=== PATIENT | female | born 1955 | race Caucasian/White ===

== ENCOUNTER 2017-02-22 03:29 | Inpatient (IN) | payer OTHER, MEDICARE ==
[~2017-02-22] VITALS: Ht 149.9 cm; Wt 110.2 kg
[~2017-02-22 03:29] MED LIST: ADVAIR 250-501 EACH INH; ATORVASTATIN CA10 M1 PO; CYCLOBENZAPRINE10 M1 PO; DICLOFENAC SODI75 M2 PO; DOXYCYCLINE HY100 M2 PO; GEMFIBROZIL600 M1 PO; HYDROCHLOROTHIA25 M1 PO; HYDROCODON-ACE1 EAC2 PO; LEVOTHYROXINE25 MCG PO; LISINOPRIL5 M1 PO; LYRICA200 M1 PO; METFORMIN HCL1000 M1 PO; METOPROLOL TART25 M1 PO; OMEPRAZOLE40 M1 PO; PROAIR HFA8.5 GM INH; VOLTAREN100 GM TOP; ZOLPIDEM TARTRA10 M1 PO
--- NOTE | 2017-02-22 15:38 | Admission Core Measures ---
Admission Meds I reviewed the following Meds: Current Medications Sig/Indu Start time Last Medication Dose Stop Time Status Admin Metronidazole 500 MG IQ8 02/22 1600 CAN (Flagyl) N/A 1 UNIT (No Carrier) Acute Coronary Syndrome Inclusion Criteria ACS Diagnosis No Inpatient Core Measures LDL Reminder: If No, please order W/I first 24hr of stay Congestive Heart Failure Inclusion Criteria CHF Diagnosis No Cerebrovascular accident Inclusion Criteria CVA/TIA Diagnosis No Inpatient Core Measures Bedside Swallow Eval Reminder: If BSE failed, place ST order Antithrombotic Reminder: Order Antithrombotic Medication by end of day 2 Antithrombotic Reminder: Document Reason Antithrombotic Not ordered by end of day 2 AFIB/Flutter Reminder: If Present, add to problem list AFIB/Flutter Reminder: Order Anticoag Medication for pts with AFIB/Flutter Atherosclerosis Reminder: If Present, add to problem list LDL Reminder: If No, please order W/I first 24hr of stay PT Order Reminder: If No, please order Venous thromboembolism Inpatient Core Measures VTE Risk Factors: Age > 40, Surgery [facility] prophylaxis d/t No contraindications No VTE Pharm Prophylaxis d/t No contraindications Inclusion Criteria - Per Current guidelines, there needs to be overlap - treatment for the first 5 days of Warfarin therapy. - Parenteral Anticoagulation (IV or SC) needs to be - given along with Warfarin therapy. VTE Diagnosis No VTE Type NONE VTE Confirmed by (Test) NONE Problem List As ranked by this Provider includes Assessment & Plan 1. Colon cancer HOME MEDS Home Med List Albuterol Sulfate (Proair Hfa) 8.5 GM HFA.AER.AD 2 PUF INH Q4-6 PRN PRN BREATHING PROBLEMS (Reported) Atorvastatin Calcium 10 MG TABLET 1 TAB PO DAILY CHOLESTEROL (Reported) Cyclobenzaprine HCl 10 MG TABLET 1 TAB PO TID SPASM (Reported) Fluticasone/Salmeterol (Advair 250-50 Diskus) 1 EACH BLST.W.DEV 1 PUF INH BID BREATHING PROBLEMS (Reported) Fluticasone/Salmeterol (Advair 250-50 Diskus) 250 MCG-50 MCG/DOSE BLST.W.DEV 1 PUF INH BID ASTHMA (Reported) Gemfibrozil 600 MG TABLET 1 TAB PO BID CHOLESTEROL (Reported) Hydrocodone/Acetaminophen (Hydrocodon-Acetaminophen 5-325) 5 MG-325 MG TABLET 1-2 TAB PO Q4-6 PRN PRN PAIN (Reported) Levothyroxine Sodium 25 MCG TABLET 1 TAB PO DAILY AC THYROID (Reported) Metformin HCl 1,000 MG TABLET 1 TAB PO BID DIABETES (Reported) Metoprolol Tartrate 25 MG TABLET 1 TAB PO BID HEART/BP (Reported) Omeprazole 40 MG CAPSULE.DR 1 CAP PO DAILY GI (Reported) Zolpidem Tartrate 10 MG TABLET 1 TAB PO QPM SLEEP (Reported)
--- NOTE | 2017-02-22 16:33 | Operative Report ---
Operative/Inv Procedure Report Surgery Date: 02/22/17 Name of Procedure: Right hemicolectomy Pre-Operative Diagnosis: Colonic stricture Post-Operative Diagnosis: Same Estimated Blood Loss: less than 50ml Surgeon/Autism Teacher: ARLEN LR,YARITZA MASON Anesthesia: general endotracheal tube Operative/Procedure Note Note: Patient was positioned supine, after induction of general anesthesia, a tap block was performed, IV antibiotics were given and then the abdomen was clipped prepped and draped from the nipples to the groin in the usual sterile fashion. A midline incision was made with a 10 blade starting in the midepigastrium and extending to or a few centimeters below the umbilicus based on preoperative CT scan and the abdominal habitus. The incision was deepened with cautery through Carter's fascia clearing off the linea alba first then carefully incising it avoiding injury to the underlying bowel. The abdomen was explored there was no free fluid peritoneal studding or obvious liver metastases. Before being able to mobilize the right colon a significant amount of time was spent lysing adhesions between the omentum and the small bowel and the small bowel mesentery and the peritoneum. After this the tattoo was found just distal to the hepatic flexure just proximal to the tattoo there was a vague sense of a linear thickening it was very subtle. The cecum was grasped and then retracted towards the incision, opening up the lateral and posterior attachments to the retroperitoneum with cautery including those to the terminal ileum and appendix continuing the retraction superiorly and mobilizing inferiorly and a little medially as well and then continuing laterally up towards the hepatic flexure along the white line of Toldt. Here cares taken to avoid injury to the ureter and gonadal vessels which are identified and left alone in a deeper plane This is continued back and forth mostly with cautery and a little bit of blunt dissection in the avascular areas until it starts to come up off joint was fascia and then the duodenum, the higher you get cares taken to avoid pulling because of the tension on the middle colic vessels. Next the hepatic flexure is taken down with the aid of LigaSure where it's more vascular and care is taken to distinguish between an separate the mesocolon and the omentum here. A point on the transverse colon just distal to the tattoo, was marked lightly with cautery , this point was past the right branch of the middle colic artery, and the omentum is divided here as well. On the other end, the terminal ileum was similarly markeded 6 cm proximal to the cecum and in both areas, a small window was made on the mesenteric border to earl the lines of transection of the mesentery. Having identified and divided with LigaSure, the right branch of the middle colic artery, there's a bare area in the mesentery next to the duodenum that leads to the main pedicles of the right colon. This right colic pedicle is identified in the mesenteric fat around it is partially cleared off. On the other side the distal small bowel mesentery is scored on both sides and then divided with LigaSure until the ileocolic pedicle was was identified and also cleared off some of the fat. These 2 adjacent pedicles are isolated near their origins and divided separately with the LigaSure after first suture ligating them with 2-0 Vicryl. Next a side to side functional end to end stapled anastomosis was made using a VALERIANO stapler with two 80 mm cartridges, the first to make a common enterotomy, and the second to "T" -off the first. Before actually firing the stapler first we made sure that the distal small bowel and transverse colon are lined up parallel not twisted or stretched and that the mesenteric fat is cleared off circumferentially where the raudel will go, we placed a 3-0 silk suture at the top and at the bottom to line them up, then make adjacent enterotomies on the antimesenteric borders inserted the stapler check that fat hasn't rolled in posteriorly, and fired. The second firing which completes the anastomosis and the resection, is checked for hemostasis with cautery but also the corners are dunked with 3-0 silk Lemberts. Next the abdomen is irrigated checked for hemostasis small bowel is run and checked for any twisting and positioned down and away from the mesenteric defect, repeatedly checking the anastomosis for any bleeding or twisting. The position of the NG tube was checked and then the incision is closed in layers using 2 continuous runs of single 0 Maxon suture for the fascia then the subcutaneous layer is irrigated again, reapproximated subdermally with interrupted 3-0 Vicryl, followed by skin raudel and an island dressing. EBL minimal lap and sponge counts correct wound expectancy was clean- contaminated, IV fluids crystalloid complications none, patient tolerated the procedure well and was returned to the recovery room in satisfactory condition.
--- NOTE | 2017-02-22 17:46 | PN- General Surgery ---
Subjective Subjective: POST OP CHECK Patient resting comfortably in bed. Minimal discomfort to abdomen. Denies CP/ SOB, N/V, F/C. Yet to ambulate. Voiding via lanier catheter. NGT remains to CLWS. Objective Vital Signs and I&Os T: 98.8F P: 90s RR: 20 BP: 142/74 o2: 95% 3LNC Physical Exam: Gen: AAOx3 in NAD Cor: S1+S2+ Lungs: CTA ursula Abd: soft, appropriately tender to midline incision, mild amount of sanguinous strikethrough noted on island dressing, ND, no BS auscultated. Ext: no edema or calf tenderness to ursula lower extremities. Current Medications: Current Medications Sig/Indu Start time Last Medication Dose Route Stop Time Status Admin Acetaminophen 1,000 MG .STK-MED ONE 02/22 719 DC IV 02/22 07 Ceftriaxone Sodium 1,000 MG ONCE ONE 02/22 1030 DC IV 02/22 1031 Fentanyl Citrate 250 MCG .STK-MED ONE 02/22 937 DC IM 02/22 09 Fentanyl Citrate 300 MCG .STK-MED ONE 02/22 0719 DC IM 02/22 0720 Hydromorphone HCl 2 MG .STK-MED ONE 02/22 0937 DC IM 02/22 0938 Hydromorphone HCl 2 MG .STK-MED ONE 02/22 0719 DC IM 02/22 0720 Metronidazole 500 MG IQ8 02/22 1600 CAN N/A 1 UNIT IV Metronidazole 500 MG ONCE ONE 02/22 1030 DC N/A 1 UNIT IV 02/22 1129 Midazolam HCl 2 MG .STK-MED ONE 02/22 0938 DC IM 02/22 0939 Midazolam HCl 2 MG .STK-MED ONE 02/22 0719 DC IM 02/22 0720 Assessment/Plan Assessment/Plan A: 61 year old female now s/p right colectomy for colon ca; avss. Plan: Wean oxygen if feasible. Monitor urine output, seems sluggish at moment (75ml over 3 hours). Continue IVF. Continue NPO. F/U am labwork. Pain control. NGT to remain on CLWS awaiting advance in bowel function. HSQ for DVT ppx. Core Measures/Miscellaneous Venous Thromboembolism VTE Risk Factors: Age > 40, Surgery VTE Contraindications: No Contraindications VTE Diagnosis: No VTE Type: NONE VTE Confirmed by (Test): NONE Beta Gibran Is Beta Gibran a Home Med? Yes Antibiotics Is Patient on Antibiotics? Yes
--- NOTE | 2017-02-22 18:00 | NUR ---
PT ARRIVED TO FLOOR AT 1800 VIA STRETCHER FROM PACU. PT A/V/OX3. ON 4LNC, SAT 97%. NGT TO L NARE AT 55 CM TO CLWS. MIDLINE ABD ISLAND DRESSING WITH MILD BLOODY DRAINAGE NOTED, SURG PA AWARE. PT REMAINS NPO, ACCUCHECK 208, NOVOLIN COVERAGE PROVIDED PER EMAR. REVELES IN PLACE DRAINING TO GRAVITY WITH KINGSLEY OUTPUT. VSS. SKIN INTACT. #22 RH INFUSING D5NS @ 100ML/HR PER EMAR. #20 RAC FLUSHES EASILY, HEP LOCKED. PT MEDICATED WITH MORPHINE PER EMAR FOR PAIN OF 9/10 TO ABD. PT STATES RELIEF FROM MORPHINE. FAMILY AT BEDSIDE. ORIENTED TO ROOM, CALL ALDRICH, & STAFF. WILL CONTINUE TO MONITOR.
[2017-02-22 18:15] VITALS: BP 130/80
--- NOTE | 2017-02-22 20:23 | NUR ---
PT RECEIVED 4MG IV MORPHINE AT 1830 PER EMAR, PT WITH LITTLE PAIN RELIEF. SURG PA JENNY NOTIFIED, 30MG TORADOL ORDERED. PT C/O NAUSEA, ZOFRAN ORDERED. WILL CONTINUE TO MONITOR.
[2017-02-22 22:30] VITALS: BP 142/82
--- NOTE | 2017-02-22 22:47 | NUR ---
PT HAS NGT BUT NO XRAY CONFIRMING PLACEMENT. SURGICAL PA JENNY NOTIFIED. PER SURGICAL PA, XRAY NOT NEEDED BECAUSE NGT PLACED IN OR. CHARGE NURSE URSULA NOTIFIED AND PER CHARGE NURSE, IT IS HOSPITAL POLICY TO HAVE XRAY PLACEMENT. WILL HOLD MEDICATIONS UNTIL XRAY IS ORDERED. WILL CONTINUE TO MONITOR.
--- NOTE | 2017-02-22 23:22 | Event Note ---
Event Note Event Note: cxr ordered to confirm ngt placement. however spoke with charge nurse and explained that documented in op report that ngt was confirmed by direct palpation by operating surgeon.
--- NOTE | 2017-02-22 23:54 | RADIOLOGY REPORT ---
EXAMINATION: XR PORTABLE CHEST CLINICAL INFORMATION: Check nasogastric tube placement COMPARISON: Chest x-ray October 2016. CT abdomen and pelvis December 2016. TECHNIQUE: Portable AP view of the chest was obtained. FINDINGS: AVN NG tube is noted in the chest but becomes obscured in the lower chest as the lower chest and upper abdomen is underpenetrated. Therefore the distal tip cannot be definitively located. The lungs are clear. The cardiac silhouette is within the upper limits of normal and unchanged. The lungs are clear. Bone and soft tissues unremarkable. IMPRESSION: NG tube in place although distal tip obscured proximal part due to the underpenetrated technique if location of the distal portion of NG tube remains necessary consider follow-up x-ray of the abdomen which which may help in penetration through the soft tissues.
--- NOTE | 2017-02-23 01:44 | RADIOLOGY REPORT ---
EXAMINATION: XR ABDOMEN CLINICAL INDICATION: Evaluate nasogastric tube placement. COMPARISON: Chest radiograph 02/22/2017. TECHNIQUE: AP views of the abdomen and pelvis were obtained. FINDINGS: The distal tip and side-port of the nasogastric tube are located within the stomach. [place] delineate a laparotomy incision. Bowel gas pattern is normal. No acute osseous finding. IMPRESSION: The distal tip of the enteric tube is located within the stomach.
[2017-02-23 02:44] VITALS: BP 116/64
[2017-02-23 07:03] VITALS: BP 116/50
[2017-02-23 08:22] LABS: ABSOLUTE BASOPHIL COUNT 0 /CUMM (0.0-0.2); ABSOLUTE EOSINOPHIL COUNT 0 /CUMM (0.0-0.7); ABSOLUTE GRANULOCYTE CT 14.9 /CUMM (1.4-6.5); ABSOLUTE LYMPH COUNT 0.7 /CUMM (1.2-3.4); ABSOLUTE MONOCYTE COUNT 1.9 /CUMM (0.10-0.60); BASOPHIL % 0 % (0.0-2.0); EOSINOPHIL % 0 % (0-5); GRANULOCYTE % 85.6 % (42.2-75.2); HEMATOCRIT 30.4 % (37-47); MEAN CORPUSCULAR HGB 26.2 PG (27.0-31.0); MEAN CORPUSCULAR HGB CONC 32.2 G/DL (33.0-37.0); MEAN CORPUSCULAR VOLUME 81.4 FL (81.0-99.0); MEAN PLATELET VOLUME 8.6 FL (7.4-10.4); PLATELET COUNT 274 /CUMM (130-400); RBC DISTRIBUTION WIDTH 17.4 % (11.5-14.5); RED BLOOD CELL CT 3.73 /CUMM (4.20-5.40); WHITE BLOOD CELL COUNT 17.4 /CUMM (4.8-10.8)
[2017-02-23 11:38] VITALS: BP 118/70
--- NOTE | 2017-02-23 13:11 | PN- General Surgery ---
See Addendum Subjective Subjective: Patient without complaints overnight. Today stated that pain was controlled well. However began to become anxious late morning/early afternoon and began to feel nausea. States has a history of dry heaving when anxious. Denies chest pain, shortness of breath and difficulty breathing. Objective Vital Signs and I&Os Vital Signs Date Time Temp Pulse Resp B/P Pulse O2 O2 Flow FiO2 Ox Delivery Rate 02/23 1138 98.1 84 20 118/70 96 Nasal 2.0L Cannula 02/23 0943 84 124/74 02/23 0703 97.4 97 20 116/50 97 Nasal 4.0L Cannula 02/23 0244 97.9 100 20 116/64 97 Nasal 4.0L Cannula 02/23 0000 97 Nasal 4.0L Cannula 02/22 2230 98.2 90 18 142/82 97 Nasal 4.0L Cannula 02/22 1815 97.4 90 18 130/80 97 Nasal 4.0L Cannula 02/22 1800 97 Nasal 4.0L Cannula Intake & Output 02/23 1600 02/23 0800 02/23 0000 02/22 1600 02/22 0800 02/22 0000 Intake Total 800 500 Output Total 300 200 Balance 500 300 Intake, IV 800 500 Output, 50 100 Gastric Drainage Output, Urine 250 100 Patient 240 lb Weight Physical Exam: General: Anxious, mild distress, crying. Alert and oriented x3 Cardiac: RRR, s1s2 Pulmonary: CTA bilaterally Abdomen: Softly distended, Dressing stained with old blood. Tesha-incisional tenderness noted Extremiteis: MOves all extremities, distal sensation intact. Motor intact. No peripheral edema. Skin well perfused. DP pulses palpable. Bilateral calves soft and non-tender Assessment/Plan Assessment/Plan This is a 61 year old female with a pmh of breast cancer who underwent a right colectomy for anemia and intestinal mass -continue ngt for now -Ativan now for anxiety, reassess nausea -Strict i/o, keep lanier catheter for now -NPO strict -SubQ hep for dvt ppx, alps -Contineu current pain regimen -Will d/w Dr. Velazquez Core Measures/Miscellaneous Venous Thromboembolism VTE Risk Factors: Age > 40, Surgery VTE Contraindications: No Contraindications VTE Diagnosis: No VTE Type: NONE VTE Confirmed by (Test): NONE Beta Gibran Is Beta Gibran a Home Med? Yes Antibiotics Is Patient on Antibiotics? Yes
[2017-02-23 14:34] VITALS: BP 158/80
--- NOTE | 2017-02-23 15:38 | NUR ---
1115- PT COMPLAINING OF NAUSEA AND REQUESTED ZOFRAN, WHICH WAS GIVEN 1215- PT BEGAN VOMITING AND DRY HEAVING. SMALL AMOUNT OF EMESIS; PT HAS NGT TO L ANNEE. NGT PATENT AND ON CONTINUOUS LWS. SURG ISABELLA KAM NOTIFIED AND TO ASSESS AT BEDSIDE. 1230- ATIVAN ORDERED AND GIVEN. PT STATES SHE DRY HEAVES WHEN ANXIOUS AT BASELINE AND IS FEELING VERY ANXIOUS. 1330- PT CONTINUES WITH NAUSEA AND VOMITING. + BS. OUTPUT FROM NGT 150 ML FOR THIS SHIFT. SURG ISABELLA KAM NOTIFIED OF ABOVE AND TO RE ASSESS AT BEDSIDE. IV BENADRYL ORDERED AND GIVEN 1500- PT REPORTS RELIEF FROM NAUSEA. NO VOMITING SINCE BENADRYL ADMINISTERED. WILL CONTINUE TO ASSESS.
[2017-02-23 17:17] VITALS: BP 148/86
--- NOTE | 2017-02-23 18:11 | NUR ---
1800- NGT OUTPUT WITH DARK BLOODY APPEARANCE. NOT NATALY BLOOD. SURG ISABELLA KAM NOTIFIED. WILL CONTINUE TO MONITOR. PER SURG ISABELLA KAM, STOMACH COULD BE IRRITATED FROM SEVERAL VOMITING EPISODES TODAY.
[2017-02-23 20:50] VITALS: BP 128/70
[2017-02-24 07:26] VITALS: BP 140/70
--- NOTE | 2017-02-24 07:40 | PN- General Surgery ---
See Addendum Subjective Subjective: The patient was seen this morning postoperatively day #2. She appeared anxious and was complaining of incisional pain. She denied any nausea this morning but reports belching a lot. She has not passed flatus and has yet to have a bowel movement. Her NG tube continues to put out dark bloodyish drainage. Objective Vital Signs and I&Os Vital Signs Date Time Temp Pulse Resp B/P Pulse O2 O2 Flow FiO2 Ox Delivery Rate 02/24 0726 97.8 105 20 140/70 96 02/24 0000 95 Nasal 2.0L Cannula 02/23 2102 107 128/78 02/23 2050 98.7 107 20 128/70 95 Nasal 2.0L Cannula 02/23 1717 98.3 101 20 148/86 91 Nasal 1.0L Cannula 02/23 1434 97.8 103 20 158/80 98 Nasal 2.0L Cannula 02/23 1138 98.1 84 20 118/70 96 Nasal 2.0L Cannula 02/23 0943 84 124/74 02/23 0800 96 Nasal 2.0L Cannula Intake & Output 02/24 0800 02/24 0000 02/23 1600 02/23 0800 02/23 0000 02/22 1600 Intake Total 690 240 860 800 500 Output Total 500 400 650 300 200 Balance 190 -160 210 500 300 Intake, IV 640 240 800 800 500 Intake, Other 50 60 Output, 150 150 150 50 100 Gastric Drainage Output, Urine 350 250 500 250 100 Patient 240 lb Weight Physical Exam: Gen.: Alert/anxious and in no obvious distress Skin: Warm and dry Abdomen: Soft, obese, appropriate incisional tenderness, bowel sounds sluggish. Surgical dressing was removed and the incision is dry with raudel in place and without signs of infection. Extremities: Bilateral lower extremities are warm without calf tenderness or significant edema. Assessment/Plan Assessment/Plan Assessment: 61-year-old female status post right hemicolectomy postoperative day #2. The patient is slowly progressing and her bowel function has had to return. She remains anxious and there is bloody drainage from her NG tube. Plan: DC IV Toradol Increase IV fluids to 100 ML's/HR Follow-up morning laboratory studies Change by mouth PPI to IV and add Carafate DC [place] catheter GI and DVT prophylaxis Total respiratory care and incentive spirometry Out of bed and ambulate May use abdominal binder for comfort Continue nothing by mouth and NG tube decompression Core Measures/Miscellaneous Venous Thromboembolism VTE Risk Factors: Age > 40, Surgery VTE Contraindications: No Contraindications VTE Diagnosis: No VTE Type: NONE VTE Confirmed by (Test): NONE Beta Gibran Is Beta Gibran a Home Med? Yes Antibiotics Is Patient on Antibiotics? No
[2017-02-24 08:10] LABS: ABSOLUTE BASOPHIL COUNT 0 /CUMM (0.0-0.2); ABSOLUTE EOSINOPHIL COUNT 0.2 /CUMM (0.0-0.7); ABSOLUTE GRANULOCYTE CT 9.9 /CUMM (1.4-6.5); ABSOLUTE LYMPH COUNT 1.2 /CUMM (1.2-3.4); ABSOLUTE MONOCYTE COUNT 1.3 /CUMM (0.10-0.60); BASOPHIL % 0.2 % (0.0-2.0); EOSINOPHIL % 1.4 % (0-5); GRANULOCYTE % 78.7 % (42.2-75.2); MEAN CORPUSCULAR HGB 26.4 PG (27.0-31.0); MEAN CORPUSCULAR HGB CONC 32.3 G/DL (33.0-37.0); MEAN CORPUSCULAR VOLUME 81.7 FL (81.0-99.0); MEAN PLATELET VOLUME 9.3 FL (7.4-10.4); PLATELET COUNT 288 /CUMM (130-400); RBC DISTRIBUTION WIDTH 17.8 % (11.5-14.5); RED BLOOD CELL CT 3.67 /CUMM (4.20-5.40); WHITE BLOOD CELL COUNT 12.5 /CUMM (4.8-10.8)
[2017-02-24 15:07] VITALS: BP 120/60
--- NOTE | 2017-02-24 17:17 | NUR ---
0800- SURG ISABELLA PARIKH REMOVED SURICAL DRESSING. LEAVE OPEN TO AIR PER KATI.
[2017-02-24 22:24] VITALS: BP 136/80
[2017-02-25 06:35] VITALS: BP 130/78
--- NOTE | 2017-02-25 08:04 | PN- General Surgery ---
See Addendum Subjective Subjective: Pt calm and comfortable this morning Still has not passed gas, no bm Ambulated to bathroom only yesterday no complaints of nausea this morning - had one bout overnight - benadryl seems to help Objective Vital Signs and I&Os Vital Signs Date Time Temp Pulse Resp B/P Pulse O2 O2 Flow FiO2 Ox Delivery Rate 02/25 0635 97.7 98 20 130/78 95 Room Air 02/24 2224 97.7 105 20 136/80 90 Room Air 02/24 2100 75 120/60 02/24 1507 98.0 75 20 120/60 97 02/24 1252 Nasal 2.0L Cannula 02/24 1000 100 144/88 Intake & Output 02/25 1600 02/25 0800 02/25 0000 02/24 1600 02/24 0800 02/24 0000 Intake Total 800 800 800 690 240 Output Total 500 200 800 500 400 Balance 300 600 0 190 -160 Intake, IV 800 800 800 640 240 Intake, Other 50 Output, 100 150 150 Gastric Drainage Output, Urine 500 200 700 350 250 Physical Exam: VSS, afebrile Urine output good IVF - D5NS at 100cc/hr General: alert and oriented times three chest: clear anteriorly bilaterally, RRR Abd: soft, good bs, nondistended Ext: warm, no edema Wound: looks good, raudel intact, no erythema or drainage Current Medications: Current Medications Sig/Indu Start time Last Medication Dose Route Stop Time Status Admin Acetaminophen 1,000 MG Q6P PRN 02/22 1815 AC 02/25 N/A 1 UNIT IV 0204 Albuterol Sulfate 2 PUF Q4-6 PRN PRN 02/22 1815 AC INH Atorvastatin Calcium 10 MG 1700 02/23 1700 AC PO Budesonide/ 2 PUF BID 02/22 2200 AC 02/24 Formoterol Fumarate INH 2100 Dextrose/Sodium 1,000 ML Q10H 02/22 1815 AC 02/25 Chloride IV 0617 Diphenhydramine HCl 25 MG ONCE ONE 02/25 0200 DC 02/25 IV 02/25 0201 0157 Gemfibrozil 600 MG BID 02/22 2200 AC 02/24 PO 2100 Insulin Human Regular 2 UNITS .STK-MED ONE 02/24 1754 DC IV 02/24 1755 Insulin Human Regular 2 UNITS .STK-MED ONE 02/24 1216 DC IV 02/24 1217 Insulin Human Regular 0 Q6 02/22 1800 AC 02/25 SC 0617 Levothyroxine Sodium 12.5 MCG DAILY 02/23 1000 AC 02/24 IV 1001 Lorazepam 1 MG Q4P PRN 02/23 1230 AC 02/23 IV 1958 Metoprolol Tartrate 25 MG BID 02/22 2200 AC 02/24 PO 2100 Morphine Sulfate 2 MG Q4P PRN 02/22 1815 AC IV Morphine Sulfate 4 MG Q6-PRN PRN 02/22 1815 AC 02/25 IV 0158 Ondansetron HCl 4 MG .STK-MED ONE 02/24 220 DC IM 02/24 220 Ondansetron HCl 4 MG Q6P PRN 02/22 2030 AC 02/24 IV 2206 Pantoprazole Sodium 40 MG DAILY 02/24 1000 AC 02/24 IV 1000 Sucralfate 1 GM BID 02/24 1000 AC 02/24 PO 2100 Assessment/Plan Assessment/Plan 61yo female pod 3 s/p hemicolectomy await bowel function - Continue npo/ivf until flatus ambulate fu labs Core Measures/Miscellaneous Venous Thromboembolism VTE Risk Factors: Age > 40, Surgery VTE Contraindications: No Contraindications VTE Diagnosis: No VTE Type: NONE VTE Confirmed by (Test): NONE Beta Gibran Is Beta Gibran a Home Med? Yes Antibiotics Is Patient on Antibiotics? No
[2017-02-25 08:06] LABS: ABSOLUTE BASOPHIL COUNT 0 /CUMM (0.0-0.2); ABSOLUTE EOSINOPHIL COUNT 0.4 /CUMM (0.0-0.7); ABSOLUTE GRANULOCYTE CT 7.7 /CUMM (1.4-6.5); ABSOLUTE LYMPH COUNT 1.1 /CUMM (1.2-3.4); ABSOLUTE MONOCYTE COUNT 1.1 /CUMM (0.10-0.60); BASOPHIL % 0.3 % (0.0-2.0); EOSINOPHIL % 3.7 % (0-5); GRANULOCYTE % 74.7 % (42.2-75.2); HEMATOCRIT 29.2 % (37-47); MEAN CORPUSCULAR HGB 26.1 PG (27.0-31.0); MEAN CORPUSCULAR VOLUME 81.7 FL (81.0-99.0); MEAN PLATELET VOLUME 8.4 FL (7.4-10.4); PLATELET COUNT 306 /CUMM (130-400); RED BLOOD CELL CT 3.58 /CUMM (4.20-5.40); WHITE BLOOD CELL COUNT 10.4 /CUMM (4.8-10.8)
[2017-02-25 14:51] VITALS: BP 120/70
[2017-02-25 22:37] VITALS: BP 132/70
[2017-02-26 06:55] VITALS: BP 122/66
--- NOTE | 2017-02-26 07:26 | PN- General Surgery ---
See Addendum Subjective Subjective: 61 yo female, pod#4 sp open hemicolectomy. had small bm yesterday, on clears, tolerating well, still with mild to moderate abdominal pain, mostly right-sided. She has been out of bed. She is voiding and passing flatus. Still taking IV pain medication. Objective Vital Signs and I&Os Vital Signs Date Time Temp Pulse Resp B/P Pulse O2 O2 Flow FiO2 Ox Delivery Rate 02/26 0655 98.5 87 20 122/66 95 Room Air 02/25 2237 98.2 100 20 132/70 91 Room Air 02/25 2127 100 128/80 02/25 1451 98.2 91 20 120/70 96 02/25 0841 98 130/78 02/25 0800 Room Air Intake & Output 02/26 0800 02/26 0000 02/25 1600 02/25 0800 02/25 0000 02/24 1600 Intake Total 250 350 940 800 800 800 Output Total 2 500 200 800 Balance 250 350 938 300 600 0 Intake, IV 0 700 800 800 800 Intake, Oral 250 350 240 Number 1 Bowel Movements Output, 100 Gastric Drainage Output, Stool 2 Output, Urine 500 200 700 Patient 240 lb Weight Physical Exam: Well-developed well-nourished no apparent distress. HEENT: Atraumatic, extraocular motion intact Neck: Supple, no lymphadenopathy Respiratory: No respiratory distress, clear to auscultation bilateral Heart: Regular and rhythm no murmur Abdomen: Obese, well healing midline surgical incision without signs of infection, raudel in place. Moderate tenderness of the right side of the abdomen and right lower quadrant. Mild tenderness otherwise throughout. Bowel sounds normal. Extremities: No edema, full range of motion Neuro: Alert and oriented x3 Psych: Mood affect normal, normal memory normal judgment. Skin: Warm and dry, no rash on exposed skin Results Last 48 Hours of Labs: Laboratory Tests 02/25 0645 Chemistry Sodium (137 - 145 mmol/L) 139 Potassium (3.5 - 5.1 mmol/L) 4.2 Chloride (98 - 107 mmol/L) 106 Carbon Dioxide (22 - 30 mmol/L) 27 Anion Gap (5 - 16) 6 BUN (7 - 17 mg/dL) 7 Creatinine (0.5 - 1.0 mg/dL) 0.7 Estimated GFR (>60 ml/min) > 60 BUN/Creatinine Ratio (7 - 25 %) 10.0 Hematology CBC w Diff NO MAN DIFF REQ WBC (4.8 - 10.8 /CUMM) 10.4 RBC (4.20 - 5.40 /CUMM) 3.58 L Hgb (12.0 - 16.0 G/DL) 9.3 L Hct (37 - 47 %) 29.2 L MCV (81.0 - 99.0 FL) 81.7 MCH (27.0 - 31.0 PG) 26.1 L RDW (11.5 - 14.5 %) 18.0 H Plt Count (130 - 400 /CUMM) 306 MPV (7.4 - 10.4 FL) 8.4 Gran % (42.2 - 75.2 %) 74.7 Lymphocytes % (20.5 - 51.1 %) 10.8 L Monocytes % (1.7 - 9.3 %) 10.5 H Eosinophils % (0 - 5 %) 3.7 Basophils % (0.0 - 2.0 %) 0.3 Absolute Granulocytes (1.4 - 6.5 /CUMM) 7.7 H Absolute Lymphocytes (1.2 - 3.4 /CUMM) 1.1 L Absolute Monocytes (0.10 - 0.60 /CUMM) 1.1 H Absolute Eosinophils (0.0 - 0.7 /CUMM) 0.4 Absolute Basophils (0.0 - 0.2 /CUMM) 0 PUBS MCHC (33.0 - 37.0 G/DL) 32.0 L Assessment/Plan Assessment/Plan 61yo female pod 4 s/p open hemicolectomy Surgically, she is progressing well Monitor bowel function. Out of bed ad navneet. Switch from IV pain medication to by mouth pain medication, patient takes Vicodin for her arthritis with pain management chronically. Possibly advancing diet today, will discuss with Miki Velazquez MD fu A.m. chemistries Plan for discharge home likely 2 days Core Measures/Miscellaneous Venous Thromboembolism VTE Risk Factors: Age > 40, Surgery VTE Contraindications: No Contraindications VTE Diagnosis: No VTE Type: NONE VTE Confirmed by (Test): NONE Beta Gibran Is Beta Gibran a Home Med? Yes Antibiotics Is Patient on Antibiotics? No
[2017-02-26 14:35] VITALS: BP 140/80
[2017-02-26 22:59] VITALS: BP 148/82
[2017-02-27 06:30] VITALS: BP 132/78
--- NOTE | 2017-02-27 07:16 | PN- General Surgery ---
See Addendum Subjective Subjective: Feels a little nauseous after eating 25% of her dinner last night. Denies any emesis. Admits to some pain at the surgical incision, as expected. Otherwise ambulating with rolling walker, denies any CP, SOB, F or chills. Passing flatus and loose stools. Would feel more comfortable staying one more day. Requesting for a nutrition consult so she has a better understanding of her LRD. Objective Vital Signs and I&Os Vital Signs Date Time Temp Pulse Resp B/P Pulse O2 O2 Flow FiO2 Ox Delivery Rate 02/27 0900 98 134/78 02/27 0630 98.0 100 20 132/78 93 Room Air 02/26 2259 98.2 101 20 148/82 92 Room Air 02/26 2208 148/82 02/26 1435 99.4 105 20 140/80 94 02/26 0953 87 122/66 Intake & Output 02/27 1600 02/27 0800 02/27 0000 02/26 1600 02/26 0800 02/26 0000 Intake Total 200 100 480 250 350 Output Total Balance 200 100 480 250 350 Intake, IV 0 0 Intake, Oral 200 100 480 250 350 Number 1 Bowel Movements borderline tachycardic. Physical Exam: Gen: NAD, laying in bed CV: Tachy, S1/S2 Pulm: CTAB Abd: [place] in place, no erythema around incision. No ttp. +BS in all quadrants. Ext: No calf tenderness b/l Assessment/Plan Assessment/Plan 61 yo F POD# 4 s/p open right hemicolectomy for colon ca. Some nausea no emesis after being advanced to LRD. Plan: Continue to monitor bowel function. Out of bed Continue with current pain regimen Continue LRD, discussed she may order fulls of she desires. lab holiday Nutrition Consult placed Likely d/c home tomorrow unless she is able to tolerate her breakfast and lunch today. Core Measures/Miscellaneous Venous Thromboembolism VTE Risk Factors: Age > 40, Surgery VTE Contraindications: No Contraindications VTE Diagnosis: No VTE Type: NONE VTE Confirmed by (Test): NONE Beta Gibran Is Beta Gibran a Home Med? Yes Antibiotics Is Patient on Antibiotics? No
--- NOTE | 2017-02-27 11:18 | NUR ---
Physical Therapy: Consult received and chart reviewed. Pt observed by this PT ambulating around unit I with RW with steady gait. Pt may benefit from RW upon discharge if she does not have one. Acute skilled PT is not indicated at this time. Will not continue to follow. Thank you.
[2017-02-27 14:55] VITALS: BP 138/88
[2017-02-27 22:28] VITALS: BP 162/80
[2017-02-28 07:37] VITALS: BP 140/74
[2017-02-28] MEDS ORDERED: CARAFATE1 G1 PO (07:41)
--- NOTE | 2017-02-28 07:47 | Patient Discharge Instructions ---
Discharge Instructions General Discharge Information You were seen/treated for: Colonic stricture You had these procedures: Open Right hemicolectomy Special Instructions: You may shower, do not submerge wound Take pain medication as needed Watch for signs of worsening abdominal pain, nausea, vomiting or fever, any redness or swelling or discharge from the wound. Diet Continue normal diet: No Recommended Diet: Low Residue Activity Full Activity/No Limits: No Activity Self Limited: Yes Pounds, do NOT lift more than: 10 Acute Coronary Syndrome Inclusion Criteria At DC or during hospital stay patient has or had the following: ACS DIAGNOSIS No Discharge Core Measures Meds if any: Prescribed or Continued at Discharge Meds if any: NOT Prescribed or Continued at Discharge Congestive Heart Failure Inclusion Criteria At DC or during hospital stay patient has or had the following: CHF DIAGNOSIS No Discharge Core Measures Meds if any: Prescribed or Continued at Discharge Meds if any: NOT Prescribed or Continued at Discharge Cerebrovascular accident Inclusion Criteria At DC or during hospital stay patient has or had the following: CVA/TIA Diagnosis No Discharge Core Measures Meds if any: Prescribed or Continued at Discharge Meds if any: NOT Prescribed or Continued at Discharge Venous thromboembolism Inclusion Criteria VTE Diagnosis No VTE Type NONE VTE Confirmed by (Test) NONE Discharge Core Measures - Per Current guidelines, there needs to be overlap - treatment for the first 5 days of Warfarin therapy. - If discharged on Warfarin prior to 5 days of - overlap therapy, the patient will need to be - assessed for post discharge needs including - *Post discharge parental anticoagulation - *Warfarin and/or parental anticoagulation education - *Follow up date to check INR post discharge At least 5 days overlap therapy as Inpatient No Meds if any: Prescribed or Continued at Discharge Note: Overlap Therapy is Warfarin and Anticoagulant Meds if any: NOT Prescribed or Continued at Discharge
--- NOTE | 2017-02-28 07:51 | Surgical Discharge Summary ---
Visit Information Visit Dates Admission Date: 02/22/17 Discharge Date: 02/28/17 History of Present Illness Chief Complaint: Colonic stricture, status post Right open hemicolectomy Medical History Blood Transfusion Hx: Yes Neurological: FIBROMYALGIA EENT: NONE Cardiovascular: hypertension, hyperlipidemia Respiratory: asthma Gastrointestinal: GERD Hepatic: NONE Renal: NONE Musculoskeletal: NONE Psychiatric: NONE Endocrine: diabetes, HYPOTHYROID Blood Disorders: anemia Cancer(s): breast cancer [employer]/Reproductive: NONE History of MRSA: No History of VRE: No History of CDIFF: No Isolation History: Standard Surgical History Pertinent Surgical History: LEFT LUMPECTOMY 2 C SECTIONS Psychosocial History Who Do You Live With? Spouse Services at Home: None What is Your Primary Language? Tamazight Review of Systems: See [facility] Hospital Course Course Attending Physician: YARITZA MCKINLEY MD Primary Care Physician: NBA LR,[facility] Course: On 02/22 patient underwent a right open hemicolectomy by Yaritza Mckinley MD due to colonic stricture. Postoperatively she was told to progress but her postoperative course was otherwise unremarkable. She was slowly advanced to a low-residue diet with which she has been tolerating for 2 days, she has had bowel movements and is passing gas, her pain is controlled with by mouth pain medication. She has no signs of infection, a minimally tender abdomen, no nausea or vomiting. She was seen by physical therapy and cleared for discharge home by them. She'll follow-up in the office in 1 week. Allergies: Coded Allergies: Penicillins (Intermediate, HIVES 07/25/16) strawberry (HIVES, RAISED RASH 11/23/16) erythromycin base (Mild, GI 07/25/16) Disposition Summary Disposition Principal Diagnosis: Colonic stricture status post right open hemicolectomy Additional Diagnosis: See [facility] Discharge Disposition: home or self care Discharge Instructions General Discharge Information Code Status: Full Code Patient's Diet: Low residue diet Patient's Activity: Self limiting activity/activity as tolerated, no lifting greater than 10 pounds Follow-Up Instructions/Appts: Follow-up with Yaritza Mckinley MD in one week. Take pain medication as needed Continue omeprazole and Carafate Watch for any signs of infection such as redness, swelling, discharge, pain, nausea, vomiting, fever greater than 101. Call with any concerns or go to the ER Medications at Discharge Discharge Medications: Continue taking these medications: Zolpidem Tartrate (Zolpidem Tartrate) 10 MG TABLET 1 Tablet ORAL Every night Qty = 30 Gemfibrozil (Gemfibrozil) 600 MG TABLET 1 Tablet ORAL TWICE DAILY Qty = 60 Comments: Last Taken: 02/28/07 Time: 0920 Fluticasone/Salmeterol (Advair 250-50 Diskus) 1 EACH BLST.W.DEV 1 Puff Inhale through mouth TWICE DAILY Qty = 60 Metoprolol Tartrate (Metoprolol Tartrate) 25 MG TABLET 1 Tablet ORAL TWICE DAILY Qty = 45 Comments: PER PT VERBALLY CONFIRMED 1 TAB PO BID Last Taken: 02/28/17 Time: 0920 Omeprazole (Omeprazole) 40 MG CAPSULE.DR 1 Capsule ORAL DAILY Qty = 60 Atorvastatin Calcium (Atorvastatin Calcium) 10 MG TABLET 1 Tablet ORAL DAILY Qty = 90 Comments: Last Taken: 02/27/17 Time: 1700 Levothyroxine Sodium (Levothyroxine Sodium) 25 MCG TABLET 1 Tablet ORAL DAILY BEFORE BREAKFAST Qty = 90 Comments: Last Taken: 02/28/17 Time: 0630 Metformin HCl (Metformin HCl) 1,000 MG TABLET 1 Tablet ORAL TWICE DAILY Qty = 180 Comments: NOT TAKEN IN HOSPITAL Albuterol Sulfate (Proair Hfa) 8.5 GM HFA.AER.AD 2 Puff Inhale through mouth EVERY 4-6 HOURS NEEDED as needed for BREATHING PROBLEMS Qty = 9 Comments: NOT TAKEN IN HOSPITAL Fluticasone/Salmeterol (Advair 250-50 Diskus) 250 MCG-50 MCG/DOSE BLST.W.DEV 1 Puff Inhale through mouth TWICE DAILY Comments: Last Taken: 02/28/17 Time: 0920 Cyclobenzaprine HCl (Cyclobenzaprine HCl) 10 MG TABLET 1 Tablet ORAL THREE TIMES DAILY Comments: NOT TAKEN IN HOSPITAL Hydrocodone/Acetaminophen (Hydrocodon-Acetaminophen 5-325) 5 MG-325 MG TABLET 1-2 Tablet ORAL EVERY 4-6 HOURS NEEDED as needed for PAIN Start taking the following new medications: Sucralfate (Carafate) 1 GRAM TABLET 1 Tablet ORAL 4 TIMES A DAY Qty = 30 No Refills Comments: Last Taken: 02/28/17 Time: 0920 Hydrocodone/Acetaminophen (Morton 5-325 Tablet) 5 MG-325 MG TABLET 1-2 Tablet ORAL EVERY 4-6 HOURS NEEDED as needed for pain Qty = 36 No Refills Ondansetron (Zofran Odt) 4 MG TAB.RAPDIS 1 Tablet SUBLINGUAL THREE TIMES DAILY as needed for nausea Qty = 10 No Refills
[2017-02-28] MEDS ORDERED: ZOFRAN ODT4 M1 SL (08:49)
[2017-02-28] MEDS ORDERED: NORCO 5-325 TA1 EACH PO (08:49)
--- NOTE | 2017-02-28 08:51 | PN- General Surgery ---
Subjective Subjective: 61-year-old female postop day 6 status post open right hemicolectomy for colonic stricture. Doing well postoperatively today. No nausea no vomiting, last episode of nausea was late last night after eating dinner. She is comfortable with pain medication at this time. She is passing gas and having bowel movements and voiding spontaneously. Objective Vital Signs and I&Os Vital Signs Date Time Temp Pulse Resp B/P Pulse O2 O2 Flow FiO2 Ox Delivery Rate 02/28 0737 98.3 100 20 140/74 94 Room Air 02/27 2228 99.0 99 20 162/80 94 02/27 2147 99 162/80 02/27 1455 98.6 95 20 138/88 96 02/27 0900 98 134/78 Intake & Output 02/28 1600 02/28 0802/28 0000 02/27 1600 02/27 0802/27 0000 Intake Total 130 252 720 200 100 Output Total Balance 130 252 720 200 100 Intake, IV 10 12 Intake, Oral 120 240 720 200 100 Patient 243 lb Weight Physical Exam: Well-developed well-nourished no apparent distress. HEENT: Atraumatic, extraocular motion intact Neck: Supple, no lymphadenopathy Respiratory: No respiratory distress Abdomen: Healing midline surgical incision, raudel in place. No erythema and no discharge. Mild tenderness to the right lower and upper quadrants. Abdomen soft. Bowel sounds normal. Extremities: No edema, full range of motion, bilateral calf nontender Neuro: Alert and oriented x3. Patient up and ambulatory without difficulty Psych: Mood affect normal, normal memory normal judgment. Skin: Warm and dry, no rash on exposed skin Assessment/Plan Assessment/Plan Postop day 6 status post open right hemicolectomy -Patient progressing well today, no nausea, pain controlled, she is out of bed, tolerating diet, stable for discharge home today. -Appreciate nutrition consult -Continue Carafate, omeprazole -Vicodin for pain as outpatient-patient will discuss with her pain management doctor, she is given a prescription by me today -She has follow-up in one week in the office with Miki Velazquez MD Core Measures/Miscellaneous Venous Thromboembolism VTE Risk Factors: Age > 40, Surgery VTE Contraindications: No Contraindications VTE Diagnosis: No VTE Type: NONE VTE Confirmed by (Test): NONE Beta Gibran Is Beta Gibran a Home Med? Yes Antibiotics Is Patient on Antibiotics? No
[2017-02-28 09:21] VITALS: BP 140/74
== END 2017-02-28 10:27 | DRG 330 ==
LOC: CANRESERV → ENRESERVTM → ENRESERVDT → 2NA 03:29 → SDA 03:29 → ENPENDDIS 03:29 → 2NA 18:00
PROVIDERS: Nurse Practitioner; Physician Assistant Surgical; ADMIT Surgery
PROC: 0DTF0ZZ Resection of Right Large Intestine, Open Approach (ICD-10-PCS; principal; 2017-02-22)
DX: K56.69 Other intestinal obstruction (principal); Z68.43 Body mass index [BMI] 50.0-59.9, adult; E66.01 Morbid (severe) obesity due to excess calories; Z85.3 Personal history of malignant neoplasm of breast; I10 Essential (primary) hypertension; E11.9 Type 2 diabetes mellitus without complications; Z79.84 Long term (current) use of oral hypoglycemic drugs
CPT/HCPCS: 2NASP; 36415; 74000; 82436; 87086; 88305; 88307; J0131; J0696; J1200; J1815; J1885; J2405; J3490; J7042

== ENCOUNTER 2018-05-14 02:07 | Inpatient (IN) | payer OTHER, MEDICARE ==
[~2018-05-14] VITALS: Ht 152.4 cm; Wt 108.2 kg
[~2018-05-14 02:07] MED LIST changes: +CARAFATE1 G1 PO; +CYMBALTA60 M1 PO; +FOLGARD TABLET1 EACH; +NORCO 5-325 TA1 EACH PO; +ZOFRAN ODT4 M1 SL
--- NOTE | 2018-05-14 09:44 | Operative Report ---
Operative/Inv Procedure Report Surgery Date: 05/14/18 Name of Procedure: Right total knee arthroplasty Pre-Operative Diagnosis: Primary osteoarthritis right knee Post-Operative Diagnosis: Same Estimated Blood Loss: less than 50ml Surgeon/Art Museum Docent: Grecia LR,Derrell MASON Anesthesia: block (SPINAL) IV Fluids: See anesthesia record Implants: Striker triathlon posterior stabilize knee size 3 femur, size 3 tibia, 9 mm polyethylene, size 27 patella Drains: None Specimens: Bone Tourniquet: 59 minutes Complications: None Condition: Stable Operative Indication: Patient's a 62-year-old female with severe osteoarthritis of the right knee with osteophyte formation and loss of the medial joint space. She fail conservative treatment is indicated for right total knee arthroplasty. Risks and benefits of the procedure were discussed with the patient detail in the office. A skilled set of hands was necessary provided by physician assistant professor of philosophy Raul Albright weighted with and positioning wound retraction and component assembly throughout the case. Operative/Procedure Note Note: Once informed consent was obtained and the correct limb was identified the patient brought to operative room. Spinal anesthesia was was administered and the patient was placed supine on the operating room table. Church catheter was placed and a thigh tourniquet was placed. The right lower 70 is prepped and draped in the usual sterile fashion. To begin the procedure standard midline incision was made. Sharp dissection was carried down through subcutaneous tissue and fat. The medial parapatellar arthrotomy was performed and the patella was everted. The fat pad is removed from the patellar tendon. Patellar thickness was measured to be 23 mm. The patellar clamp was placed in a plan resection of 8 mm of bone was taken off the patella. Patella sized to be a size 27 symmetric pateLLA. The lug holes were drilled for the patellar button and the patella was retracted laterally and the knee was placed in flexion. Intercondylar notch was prepared and the step drill was used to enter the intramedullary canal of the femur. The intramedullary distal femoral cutting guide was placed. A plan resection of 10 mm of bone with a 6 valgus cut was made. Distal bone was passed off as specimen. The femur sized to be a size 3 femur with the sizing block. A size 3 4-in-1 femoral cutting block was placed and distal femur and the anterior, posterior, chamfer cuts were made without complication. Bone was passed off as specimen. The box cut guide was placed on the distal femur for a size 3 femur and the box cut was made for posterior stabilized knee. At this point a pickle fork retractors placed posterior to the tibia and the remainders of the cruciate ligaments were resected and the tibia was translated anteriorly. The lateral and medial menisci resected as well. The intramedullary canal the tibia was entered with a step drill. The tibial cutting guide was placed down each medullary canal. Plan resection of 4 mm of bone off of the medial side of the knee was performed. The tibial specimen was passed off. The tibial was sized to be a size 3 tibial component. Trial reduction was done with a size 3 femur, size 3 tibia and a 9 mm polyethylene insert. The knee had full extension and flexion of 100. Flexion was limited by the size of the leg. The knee was stable to varus and valgus stress at 0 and 60. The patella tracked very nicely. The rotation of the tibial component was marked and the components removed. The tibial component was then pinned in place and the keel cut was made. At this point all entrance removed and the knee was pulse lavaged. Cement was mixed on the back table. Once the cement was ready the components were cemented in place with the tibial component cemented first followed by the femoral component and the patellar button. All excess cement was removed with curettes. A 9 mm polyethylene insert was placed into the knee and the knee is placed in extension while the cement hardened. Adequately hardened the knee was taken through a range of motion again found to be stable 0 and 60 to varus valgus stress. Patella tracked nicely. A 9 mm polyethylene Striker triathlon insert was opened and locked into the tibial tray. The wound was pulse lavaged. The tourniquet was released and any bleeding was stopped with electrocautery and pressure. The knee was again pulse lavaged and the arthrotomy is closed with #1 Vicryl interrupted sutures. The subcutaneous tissues closed with #1 Vicryl and 2-0 Vicryl interrupted sutures. The skin was closed raudel and a sterile dressing was applied. Patient was awakened taken recovery in stable condition.
--- NOTE | 2018-05-14 10:32 | Cons- Medical ---
Clara Aldrich MD 05/14/18 1032: General Information and HPI Consulting Request Date of Consult: 05/14/18 Requested By: Grecia LR,Derrell Edmond Reason for Consult: Medical management Source of Information: patient, old records Exam Limitations: no limitations History of Present Illness: Patient is a 62 YO F with PMH significant for left knee replacement 2013, Osteoarthritis, anxiety, HTN, DM, hypothyroidism, sleep apnea presented for right knee replacement surgery. She is in PACU in no distress by the time of interview. She reports recent increase in heart rate requiring increase in her metoprolol dose to 50mg BID and unable to walk well at baseline secondary to arthritis. She denies any chest pain, shortness of breath, dizziness, cough at the moment. Recently losartan was discontinued due to high potassium levels. PMH HTN Hypothyroidism Sleep apnea on CPAP breast cancer s/p radio/chemo sinus tachycardia on metoprolol fructose intolerance Meds Levothyroxine 25mcg daily metformin 1000mg bid atorvastatin 10mg daily metoprolol 50mg bid Gemfibrozil 600mg daily Duloxetine 60mg daily zolpidem Inhalers Social no smoking, no alcohol, no drugs surgical tonsillectomy, tubal ligation, right knee replacement 2013 - follows Allergies/Medications Allergies: Coded Allergies: Penicillins (Intermediate, HIVES 05/02/18) strawberry (HIVES, RAISED RASH 05/02/18) erythromycin base (Mild, GI 05/02/18) Home Med List: Albuterol Sulfate (Proair Hfa) 8.5 GM HFA.AER.AD 2 PUF INH Q4-6 PRN PRN BREATHING PROBLEMS (Reported) Cyclobenzaprine HCl 10 MG TABLET 1 TAB PO TID SPASM (Reported) Diclofenac Sodium (Voltaren) 1 % GEL..GRAM. 1 GM TOP 4 TIMES/DAY PAIN ( Reported) apply to affected area(s) Duloxetine HCl (Cymbalta) 60 MG CAPSULE.DR 1 CAP PO DAILY ANXIETY (Reported) Fluticasone/Salmeterol (Advair 250-50 Diskus) 250 MCG-50 MCG/DOSE BLST.W.DEV 1 PUF INH BID ASTHMA (Reported) Gemfibrozil 600 MG TABLET 1 TAB PO BID CHOLESTEROL (Reported) Hydrocodone/Acetaminophen ([place] 5-325 Tablet) 5 MG-325 MG TABLET 1-2 TAB PO Q4-6 PRN PRN pain Levothyroxine Sodium 25 MCG TABLET 1 TAB PO DAILY AC THYROID (Reported) Metformin HCl 1,000 MG TABLET 1 TAB PO BID DIABETES (Reported) Metoprolol Tartrate 25 MG TABLET 1 TAB PO BID HEART/BP (Reported) Omeprazole 40 MG CAPSULE. 1 CAP PO DAILY GI (Reported) Vit D3/Folic Acid/B2/B6/B12 (Folgard Tablet) 2,000-800 TABLET SUPPLEMENT ( Reported) Zolpidem Tartrate 10 MG TABLET 1 TAB PO QPM SLEEP (Reported) Current Medications: Current Medications Sig/Indu Start time Last Medication Dose Route Stop Time Status Admin Acetaminophen 0 .STK-MED ONE 05/14 637 DC PO Acetaminophen 650 MG ONCE 05/14 0000 DC PO 05/14 2359 Albuterol Sulfate 2 PUF Q4-6 PRN PRN 05/14 1200 AC INH Apixaban 2.5 MG BID 05/15 0900 AC PO Celecoxib 400 MG DAILY 05/15 0900 AC PO Celecoxib 400 MG ONCE 05/14 0000 DC PO 05/14 2359 Dexamethasone 0 .STK-MED ONE 05/14 0636 DC .ROUTE Dexamethasone 10 MG ONCE 05/14 0000 DC IV 05/14 2359 Dextrose/Sodium 1,000 ML Q13H 05/14 1345 AC Chloride IV Docusate Sodium 100 MG DAILY NEEDED PRN 05/14 1200 AC PO Duloxetine HCl 60 MG DAILY 05/15 0900 AC PO Gabapentin 0 .STK-MED ONE 05/14 0637 DC PO Gabapentin 300 MG ONCE 05/14 0000 DC PO 05/14 2359 Gemfibrozil 600 MG BID 05/14 2100 AC PO Hydrocodone Bitart/ 1 TAB Q4 HRS NEEDED PRN 05/14 1200 AC Acetaminophen PO Hydrocodone Bitart/ 2 TAB Q4-6 PRN PRN 05/14 1200 AC Acetaminophen PO Insulin Aspart 0 AT BEDTIME 05/14 2100 AC SC Insulin Aspart 0 TIDAC 05/14 1700 AC SC Levothyroxine Sodium 0.025 MG DAILY AC 05/15 0700 AC PO Metformin HCl 1,000 MG BID 05/14 2100 CAN PO Metoprolol Tartrate 25 MG BID 05/14 2100 DC PO Metoprolol Tartrate 50 MG BID 05/14 2100 AC PO Morphine Sulfate 2 MG Q3P PRN 05/14 1200 AC IV Morphine Sulfate 4 MG Q3P PRN 05/14 1200 AC IV Omeprazole 40 MG DAILY AC 05/15 0700 AC PO Ondansetron HCl 4 MG Q6P PRN 05/14 1200 AC IV Oxycodone HCl 0 .STK-MED ONE 05/14 0637 DC PO Oxycodone HCl 10 MG ONCE 05/14 0000 DC PO 05/14 2359 Polyethylene Glycol 17 GM DAILY NEEDED PRN 05/14 1200 AC PO Scopolamine HBr 0 .STK-MED ONE 05/14 0636 DC TOP Scopolamine HBr 1 PAT ONCE 05/14 0000 DC TOP 05/14 2359 Senna/Docusate Sodium 2 TAB AT BEDTIME NEED.. 05/14 1200 AC PO Sodium Chloride 1,000 ML .[id number] 05/14 1200 DC 05/14 IV 1238 Vancomycin HCl 1,500 MG ONCE ONE 05/14 1900 AC Sodium Chloride 250 ML IV 05/14 2029 Vancomycin HCl 1,500 MG ONCE 05/14 0000 DC Sodium Chloride 250 ML IV 05/14 2359 Zolpidem Tartrate 10 MG QPM 05/14 2100 AC PO Review of Systems Review of Systems Constitutional: Reports: see HPI. EENTM: Reports: see HPI. 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 Home Who Do You Live With? self Services at Home: None Smoking Status: Unknown If Ever Smoked ETOH Use: denies use Illicit Drug Use: denies illicit drug use Functional Ability ADLs Independent: dressing, eating, toileting, bathing. Ambulation: walker IADLs Needs Assist: shopping, housework, finances, food prep, telephone, transportation, medication admin. Exam & Diagnostic Data Last 24 Hrs of Vital Signs/I&O Vital Signs Date Time Temp Pulse Resp B/P B/P Pulse O2 O2 Flow FiO2 Mean Ox Delivery Rate 05/14 1413 Room Air 05/14 1404 98.2 85 18 136/82 92 Room Air 05/14 1130 97.4 84 16 124/72 94 Room Air Room Air Intake & Output 05/14 1600 05/14 0800 05/14 0000 Intake Total Output Total Balance Patient 108.409 kg Weight Weight Reported by Patient Measurement Method Physical Exam General Appearance: well developed/nourished, no apparent distress, alert, awake , comfortable Head: atraumatic, normal appearance Eyes: Bilateral: normal appearance, PERRL, EOMI. Ears, Nose, Throat: normal pharynx, normal ENT inspection Neck: normal inspection, supple Respiratory: normal breath sounds, chest non-tender, no respiratory distress Cardiovascular: regular rate/rhythm, normal peripheral pulses Last 24 Hrs of Labs/Mg: Post operative afebrile, BP 120/82mmHg, HR 82, saturating well on RA Assessment/Plan Assessment/Plan Patient is a 62 YO F with PMH significant for left knee replacement 2013, Osteoarthritis, anxiety, HTN, DM, hypothyroidism, sleep apnea presented for right knee replacement surgery. She remains comfortable after surgery during my interview. Medical team consulted for managing comorbid conditions. VS are stable. Physical exam - Obese BMI - 45, normal S1, S2, no murmurs, lungs clear to ausculation, no edema, dressing present on right leg with norris wraps. Problem list 1. s/p Right TKR 2. Hypothyoidism 3. Diabetes 4. Tachycardia 5. Sleep apnea on CPAP 6. Dyspnea on exertion on inhalers follows 7. Low back pain on muscle relaxants Plan Post op care per surgery Incentive spirometry continue CPAP at night Continue home medications including levothyroxine, omeprazole, gemfibrozil Accuchecks, Insulin sliding scale while in hospital Consider adding levemir 3 units bid if sugars remain high given decadron dose Avoid oral hypoglycemics in hospital TRC/Nebs Pain management per surgery DVT prophylaxis all the time Problem List: 1. Dyspnea 2. Diabetes Consult Acknowledgment - Thank you for your consult request. Andrew Ashton MD 05/14/18 0167: Assessment/Plan Consult Acknowledgment - Thank you for your consult request. Attending MD Review Statement Attending Statement Attending MD Statement: examined this patient, discuss w/resident/PA/NANOSCIENCE TECHNICIAN, agreed w/resident/PA/NANOSCIENCE TECHNICIAN, reviewed EMR data (avail), discussed with nursing, amended to note Attending Assessment/Plan: The patient is a 62 yo female with h/o HTN, DM2, hypothyroidism, TYRON (on CPAP) and recent episode of sinus tachycardia (controlled on Metoprolol) who was admitted s/p right TKR (has prior left TKR). At the time of my exam she was alert and feeling well post operatively. No c/o chest pain, dyspnea, abd pain, N/V, or palpitations. Physical Exam: Chest: clear Cor: RRR nl S1, S2 w/o murm Abd: BS+, soft, NT Ext: s/p right TKR (wrapped), left LE w/o edema Neuro: alert & oriented x 3, non-focal exam Labs/Tests: as above Impression/Plan: #S/P Right TKR- for OA. Did well with procedure. Appears comfortable. Plan: Care as per orthopedics. Patient go to to [facility] post initial recovery here. #DM2- has been doing well. Plan: Will follow sugars. Hold Metformin in hospital. Sliding scale insulin. #TYRON- on CPAP at night. Plan: Continue CPAP. #Hypothyroid- euthyroid. Plan: Continue Levothyroxine. #Tachycardia- bout with sinus tachycardia. Assume TSH checked recently. Plan: Follow HR (no monitor needed at present). Continue Metoprolol. #Hyperlipidemia- on Gemfibrozil/Atorvastatin. Plan: Continue meds.
[2018-05-14 11:30] VITALS: BP 124/72
--- NOTE | 2018-05-14 13:59 | PN- Orthopedic ---
Subjective Subjective: POC feeling ok, denies pain. no oob yet- turned PT away, "rather wait until tomorrow". no n/v, rusty diet. no cp/sob. +uo via [place] Objective Vital Signs and I&Os Vital Signs Date Time Temp Pulse Resp B/P B/P Pulse O2 O2 Flow FiO2 Mean Ox Delivery Rate 05/14 1130 97.4 84 16 124/72 94 Room Air Room Air Intake & Output 05/14 1600 05/14 0800 05/14 0000 05/13 1600 05/13 0800 05/13 0000 Intake Total Output Total Balance Patient 239 lb Weight Weight Reported by Patient Measurement Method Physical Exam: gen- nad card-s1s2 rrr pulm- ctab abd- soft nt ext- rle: dressed w norris- cdi, palp dp, gross sensation intact. calves soft nt, alps on bl, +plantar/dorsiflexion equal bl. Assessment/Plan Assessment/Plan A- POD0 sp R TKR, stable, awaiting PT evaluation. P- prn pain meds WBAT, PT, OOB eliquis 2.5 BID, alps home meds trc i&os dsg change pod2 dc planning- [facility] for STR appreciate medical input neil amor attending Core Measures Venous Thromboembolism VTE Risk Factors Surgery No Mechanical VTE Prophylaxis d/t N/A MechProphylax Ordered No VTE Pharm Prophylaxis d/t NA PharmProphylax ordered
[2018-05-14 14:04] VITALS: BP 136/82
--- NOTE | 2018-05-14 14:08 | Patient Discharge Instructions ---
Discharge Instructions General Discharge Information You were seen/treated for: right knee pain related to unilateral primary osteoarthritis You had these procedures: right total knee replacement Watch for these problems: Increasing pain despite the use of pain medication Increasing redness, warmth or swelling Drainage of any type from incision Inability to bear weight on operative leg Persistent nausea and vomiting Fever greater than 101.5 degrees Other wound care: Please keep wound clean and dry. No ointments or lotions of any type on or near incision at any time. No exceptions. Your dressing will be changed by your nurse on the second day after your surgery. Daily dry dressing changes are recommended each day thereafter. Do not soak your wound- no bath/swimming. You may shower, please dry wound immediately after shower with a clean towel. Special Instructions: Eliquis: You are taking this medication to help prevent blood clot formation. Please take as directed. Diet Recommended Diet: Diabetic Activity Activity Limited to: Weight bear as tolerated Acute Coronary Syndrome Inclusion Criteria At DC or during hospital stay patient has or had the following: ACS DIAGNOSIS No Discharge Core Measures Meds if any: Prescribed or Continued at Discharge Meds if any: NOT Prescribed or Continued at Discharge Congestive Heart Failure Inclusion Criteria At DC or during hospital stay patient has or had the following: CHF DIAGNOSIS No Discharge Core Measures Meds if any: Prescribed or Continued at Discharge Meds if any: NOT Prescribed or Continued at Discharge Cerebrovascular accident Inclusion Criteria At DC or during hospital stay patient has or had the following: CVA/TIA Diagnosis No Discharge Core Measures Meds if any: Prescribed or Continued at Discharge Meds if any: NOT Prescribed or Continued at Discharge Venous thromboembolism Inclusion Criteria VTE Diagnosis No VTE Type NONE VTE Confirmed by (Test) NONE Discharge Core Measures - Per Current guidelines, there needs to be overlap - treatment for the first 5 days of Warfarin therapy. - If discharged on Warfarin prior to 5 days of - overlap therapy, the patient will need to be - assessed for post discharge needs including - *Post discharge parental anticoagulation - *Warfarin and/or parental anticoagulation education - *Follow up date to check INR post discharge At least 5 days overlap therapy as Inpatient No Meds if any: Prescribed or Continued at Discharge Note: Overlap Therapy is Warfarin and Anticoagulant Meds if any: NOT Prescribed or Continued at Discharge
--- NOTE | 2018-05-14 14:17 | Surgical Discharge Summary ---
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 Home Who Do You Live With? Spouse Services at Home: None What is Your Primary Language? Haitian Review of Systems: see H&P Hospital Course Course Attending Physician: Derrell Paige MD [facility] Patient was admitted to the hospital for an elective total joint replacement. The procedure was tolerated well and patient was transferred to a general surgical floor. Diet was advanced and tolerated. The patient was evaluated and treated by physical therapy. At the time of hospital discharge, the vital signs were stable, neurovascular status was intact, and pain was controlled with the use of oral pain medications. She has multiple stairs to get into her house and required transfer to skilled nurse facility for continued physical therapy and rehabilitation. Complications: NONE Allergies: Coded Allergies: Penicillins (Intermediate, HIVES 05/02/18) strawberry (HIVES, RAISED RASH 05/02/18) erythromycin base (Mild, GI 05/02/18) Significant Procedures: 05/14/18 right total knee replacement Disposition Summary Disposition Principal Diagnosis: right knee unilateral primary osteoarthritis Additional Diagnosis: same, sp right total knee replacement Discharge Disposition: SNF Discharge Instructions General Discharge Information Code Status: Full Code Patient's Diet: diabetic Patient's Activity: WBAT Follow-Up Instructions/Appts: Follow up in 2 weeks from date of surgery. Please call office to arrange &/or confirm this appointment. Medications at Discharge Discharge Medications: Stop taking the following medications: Diclofenac Sodium (Voltaren) 1 % GEL..GRAM. On the skin 4 TIMES A DAY Continue taking these medications: Zolpidem Tartrate (Zolpidem Tartrate) 10 MG TABLET 1 Tablet ORAL Every night Qty = 30 Gemfibrozil (Gemfibrozil) 600 MG TABLET 1 Tablet ORAL TWICE DAILY Qty = 60 Comments: Last Taken: 02/28/07 Time: 09 Metoprolol Tartrate (Metoprolol Tartrate) 25 MG TABLET 1 Tablet ORAL TWICE DAILY Qty = 45 Comments: PER PT VERBALLY CONFIRMED 1 TAB PO BID Last Taken: 02/28/17 Time: 09 Omeprazole (Omeprazole) 40 MG CAPSULE.DR 1 Capsule ORAL DAILY Qty = 60 Levothyroxine Sodium (Levothyroxine Sodium) 25 MCG TABLET 1 Tablet ORAL DAILY BEFORE BREAKFAST Qty = 90 Comments: Last Taken: 02/28/17 Time: 0630 Metformin HCl (Metformin HCl) 1,000 MG TABLET 1 Tablet ORAL TWICE DAILY Qty = 180 Comments: NOT TAKEN IN HOSPITAL Albuterol Sulfate (Proair Hfa) 8.5 GM HFA.AER.AD 2 Puff Inhale through mouth EVERY 4-6 HOURS NEEDED as needed for BREATHING PROBLEMS Qty = 9 Comments: NOT TAKEN IN HOSPITAL Fluticasone/Salmeterol (Advair 250-50 Diskus) 250 MCG-50 MCG/DOSE BLST.W.DEV 1 Puff Inhale through mouth TWICE DAILY Comments: Last Taken: 02/28/17 Time: 919 Cyclobenzaprine HCl (Cyclobenzaprine HCl) 10 MG TABLET 1 Tablet ORAL THREE TIMES DAILY Comments: NOT TAKEN IN HOSPITAL Hydrocodone/Acetaminophen ([place] 5-325 Tablet) 5 MG-325 MG TABLET 1-2 Tablet ORAL EVERY 4-6 HOURS NEEDED as needed for pain Qty = 36 Duloxetine HCl (Cymbalta) 60 MG CAPSULE.DR 1 Capsule ORAL DAILY Vit D3/Folic Acid/B2/B6/B12 (Folgard Tablet) 2,000-800 TABLET Start taking the following new medications: Apixaban (Eliquis) 2.5 MG TABLET 2.5 Milligram ORAL TWICE DAILY Qty = 60 No Refills Polyethylene Glycol 3350 (Miralax) 17 GRAM/DOSE POWDER 17 Gram ORAL DAILY NEEDED as needed for NO BM IN TWO DAYS Qty = 1 No Refills Sennosides/Docusate Sodium (Senna Plus Tablet) 8.6 MG-50 MG TABLET 2 Tablet ORAL AT BEDTIME NEEDED as needed for NO BM IN TWO DAYS Qty = 10 No Refills
[2018-05-14 16:03] VITALS: BP 144/75
[2018-05-14 17:36] VITALS: BP 120/60
[2018-05-14 22:38] VITALS: BP 122/71
[2018-05-15 04:03] VITALS: BP 133/54
[2018-05-15 06:07] VITALS: BP 138/80
--- NOTE | 2018-05-15 08:09 | PN- Orthopedic ---
Subjective Subjective: No acute overnight events reported. Pain well controlled with block presently, pt states has not needed any pain medication thus far. Denies chest pain, shortness of breath and difficulty breathing. Denies nausea and vomitting. Has had gas but no bm or diarrhea. Raised concerns about fructose intolerance. Has yet to ambulate. Anticipates oob today with PT. Anticipates discharge to [facility], has made arrangements with [facility]. Objective Vital Signs and I&Os Vital Signs Date Time Temp Pulse Resp B/P B/P Pulse O2 O2 Flow FiO2 Mean Ox Delivery Rate 05/15 0607 98.3 89 18 138/80 94 Room Air 05/15 0403 98.0 89 20 133/54 93 CPAP 05/15 0031 91 92 05/14 2238 98.6 92 20 122/71 95 Room Air 05/14 2218 93 93 05/14 2129 120/60 05/14 1736 98.7 86 20 120/60 94 Room Air 05/14 1603 98.3 90 20 144/75 95 Room Air 05/14 1413 Room Air 05/14 1404 98.2 85 18 136/82 92 Room Air 05/14 1130 97.4 84 16 124/72 94 Room Air Room Air Intake & Output 05/15 1600 05/15 0800 05/15 0000 05/14 1600 05/14 0800 05/14 0000 Intake Total 225 539 0839 Output Total 900 Balance 0 500 1325 Intake, IV 600 300 225 Intake, Oral 660 104 4584 Number 0 Bowel Movements Output, Urine 900 Patient 239 lb Weight Weight Reported by Patient Measurement Method Physical Exam: General: Alert and oriented x3, no acute distess Cardiac: RRR, s1s2 Pulm: CTA bilaterally, non-labored respiratory effort Abd: Soft, obese, non-tender, non-distneded Extremities: Moves all extremities, neurovascular status intact. Bilateral calves soft and non-tender. Surgical site: Right knee. Dressing dry and intact. Full extension. Assessment/Plan Assessment/Plan This is a 62 year old female, POD 1, s/p R TKR. PMH signficant for: htn, hld, asthma, gerd, niddm. -DC iv fluids now -Follow up am labs, has hx of hyperkalemia -OOB, wbat -Eliquis for dvt ppx to begin today -F/U diet restrictions, low fructose, ([facility] note written to suggest diet alternatives with pt, unable to put specific fructose related notation in diet order.) -Continue current pain regimen -Anticipate dc to str Saturday Will discuss plan of care with Dr. Paige Core Measures Venous Thromboembolism VTE Risk Factors Surgery No Mechanical VTE Prophylaxis d/t N/A MechProphylax Ordered No VTE Pharm Prophylaxis d/t NA PharmProphylax ordered
[2018-05-15 08:23] LABS: ABSOLUTE BASOPHIL COUNT 0 /CUMM (0.0-0.2); ABSOLUTE EOSINOPHIL COUNT 0 /CUMM (0.0-0.7); ABSOLUTE GRANULOCYTE CT 18.7 /CUMM (1.4-6.5); ABSOLUTE LYMPH COUNT 0.7 /CUMM (1.2-3.4); BASOPHIL % 0.1 % (0.0-2.0); EOSINOPHIL % 0.1 % (0-5); HEMATOCRIT 29.2 % (37-47); MEAN CORPUSCULAR HGB CONC 33.9 G/DL (33.0-37.0); MEAN CORPUSCULAR VOLUME 88.7 FL (81.0-99.0); MEAN PLATELET VOLUME 8.7 FL (7.4-10.4); PLATELET COUNT 354 /CUMM (130-400); RBC DISTRIBUTION WIDTH 15.2 % (11.5-14.5); RED BLOOD CELL CT 3.29 /CUMM (4.20-5.40); WHITE BLOOD CELL COUNT 21.5 /CUMM (4.8-10.8)
--- NOTE | 2018-05-15 10:21 | PN- Medicine Consult ---
Elinor LR,Clara 05/15/18 1021: Assessment/PlanMedical Consult Assessment/Plan Assessment: Patient is a 62 YO F with PMH significant for left knee replacement 2014, Osteoarthritis, anxiety, HTN, DM, hypothyroidism, sleep apnea presented for right knee replacement surgery. She remains comfortable after surgery during my interview. Medical team consulted for managing comorbid conditions. VS are stable. Physical exam - Obese BMI - 45, normal S1, S2, no murmurs, lungs clear to ausculation, no edema, dressing present on right leg with norris wraps. Problem list 1. s/p Right TKR 2. Hypothyoidism 3. Diabetes 4. Tachycardia 5. Sleep apnea on CPAP 6. Dyspnea on exertion on inhalers follows 7. Low back pain on muscle relaxants Plan Post op care per surgery Incentive spirometry continue CPAP at night Continue home medications including levothyroxine, omeprazole, gemfibrozil Accuchecks, Insulin sliding scale while in hospital Consider adding levemir 3 units bid if sugars remain high given decadron dose Avoid oral hypoglycemics in hospital TRC/Nebs Pain management per surgery DVT prophylaxis all the time Plan: as above Problem List: 1. Dyspnea 2. Diabetes 3. Hypothyroidism Subjective Subjective: Seen and examined Remains stable. No overnight issues. Eager to walk with physical therapy Review of Systems Constitutional: Reports: see HPI. Objective Last 24 Hrs of Vital Signs/I&O Vital Signs Date Time Temp Pulse Resp B/P B/P Pulse O2 O2 Flow FiO2 Mean Ox Delivery Rate 05/15 0807 100 158/92 05/15 0607 98.3 89 18 138/80 94 Room Air 05/15 0403 98.0 89 20 133/54 93 CPAP 05/15 0031 91 92 05/14 2238 98.6 92 20 122/71 95 Room Air 05/14 2218 93 93 05/14 2129 120/60 05/14 1736 98.7 86 20 120/60 94 Room Air 05/14 1603 98.3 90 20 144/75 95 Room Air 05/14 1413 Room Air 05/14 1404 98.2 85 18 136/82 92 Room Air 05/14 1130 97.4 84 16 124/72 94 Room Air Room Air Intake & Output 05/15 1600 05/15 0800 05/15 0000 Intake Total 900 500 Output Total 900 Balance 0 500 Intake, IV 600 300 Intake, Oral 300 200 Output, Urine 900 Physical Exam General Appearance: well developed/nourished, no apparent distress, alert, awake , comfortable Head: atraumatic, normal appearance Ears, Nose, Throat: normal pharynx, normal ENT inspection Neck: normal inspection, supple Cardiovascular: regular rate/rhythm, normal peripheral pulses Respiratory: normal breath sounds, chest non-tender, no respiratory distress Peripheral Pulses: 2+ radial (R), 2+ radial (L) Abdomen: normal bowel sounds, soft, non-tender Back: normal inspection Extremities: dressing present on the right knee region Skin: intact, normal color, warm/dry Current Medications: Current Medications Sig/Indu Start time Last Medication Dose Route Stop Time Status Admin Acetaminophen 650 MG ONCE 05/14 0000 DC PO 05/14 2359 Albuterol Sulfate 2 PUF Q4-6 PRN PRN 05/14 1200 AC INH Apixaban 2.5 MG BID 05/15 0900 AC 05/15 PO 0805 Celecoxib 400 MG DAILY 05/15 0900 AC 05/15 PO 0804 Celecoxib 400 MG ONCE 05/14 0000 DC PO 05/14 2359 Dexamethasone 10 MG ONCE 05/14 0000 DC IV 05/14 2359 Dextrose/Sodium 1,000 ML Q13H 05/14 1345 AC 05/14 Chloride IV 1600 Diphenhydramine HCl 25 MG SEE ADMIN CRITERIA 05/14 1815 AC IV Docusate Sodium 100 MG DAILY NEEDED PRN 05/14 1200 AC PO Duloxetine HCl 60 MG DAILY 05/15 0900 AC 05/15 PO 0805 Gabapentin 300 MG ONCE 05/14 0000 DC PO 05/14 2359 Gemfibrozil 600 MG BID 05/14 2100 AC 05/15 PO 0805 Hydrocodone Bitart/ 1 TAB Q4 HRS NEEDED PRN 05/14 1200 AC Acetaminophen PO Hydrocodone Bitart/ 2 TAB Q4-6 PRN PRN 05/14 1200 AC 05/15 Acetaminophen PO 0805 Insulin Aspart 0 AT BEDTIME 05/14 2100 AC SC Insulin Aspart 0 TIDAC 05/14 1700 AC 05/15 SC 0804 Ketorolac 30 MG SEE ADMIN CRITERIA.. 05/14 1830 AC Tromethamine IV 05/15 1829 Levothyroxine Sodium 0.025 MG DAILY AC 05/15 0700 AC 05/15 PO 0513 Metformin HCl 1,000 MG BID 05/14 2100 CAN PO Metoclopramide HCl 10 MG Q6P PRN 05/14 181 AC IV Metoprolol Tartrate 25 MG BID 05/14 2100 DC PO Metoprolol Tartrate 50 MG BID 05/14 2100 AC 05/15 PO 0807 Morphine Sulfate 2 MG Q3P PRN 05/15 0800 AC IV Morphine Sulfate 2 MG Q3P PRN 05/14 1200 DC IV Morphine Sulfate 4 MG Q3P PRN 05/14 1200 DC IV Naloxone HCl 0.4 MG SEE ADMIN CRITERIA 05/14 181 AC IV Omeprazole 40 MG DAILY AC 05/15 0700 AC 05/15 PO 0513 Ondansetron HCl 4 MG Q6P PRN 05/14 1200 AC IV Oxycodone HCl 10 MG ONCE 05/14 0000 DC PO 05/14 2359 Polyethylene Glycol 17 GM DAILY NEEDED PRN 05/14 1200 AC PO Scopolamine HBr 1 PAT ONCE 05/14 0000 DC TOP 05/14 2359 Senna/Docusate Sodium 2 TAB AT BEDTIME NEED.. 05/14 1200 AC PO Sodium Chloride 1,000 ML .[id number] 05/14 1200 DC 05/14 IV 1238 Vancomycin HCl 1,500 MG ONCE ONE 05/14 1900 DC 05/14 Sodium Chloride 250 ML IV 05/14 2029 2130 Vancomycin HCl 1,500 MG ONCE 05/14 0000 DC Sodium Chloride 250 ML IV 05/14 2359 Zolpidem Tartrate 10 MG QPM 05/14 2100 AC 05/14 PO 2210 Results Last 24 Hrs Lab/Mg Results: Laboratory Tests 05/15/18 0700: Anion Gap 12, Estimated GFR > 60, BUN/Creatinine Ratio 25.0, CBC w Diff MAN DIFF ORDERED, RBC 3.29 L, MCV 88.7, MCH 30.0, MCHC 33.9, RDW 15.2 H, MPV 8.7, Gran % 87.0 H, Lymphocytes % 3.3 L, Monocytes % 9.5 H, Eosinophils % 0.1, Basophils % 0.1, Absolute Granulocytes 18.7 H, Segmented Neutrophils Pending, Band Neutrophils Pending, Absolute Lymphocytes 0.7 L, Lymphocytes Pending, Monocytes Pending, Absolute Monocytes 2.0 H, Absolute Eosinophils 0, Absolute Basophils 0, Metamyelocytes Pending, Platelet Estimate Pending, Anisocytosis Pending Andrew Ashton MD 05/15/18 1452: Attending MD Review Statement Attending Sign Off Attending Cosign Statement: I have: examined this patient, reviewed avalbl EMR data, discussd w/resident/PA/ [employer], discussed mgmt plan w/CM, discussed mgmt plan w/pt, agreed w/resident/PA/[employer], amended to note. Other Findings: The patient was seen and discussed with resident, case management and the patient's family. Patient desires STR for rehab.
--- NOTE | 2018-05-15 11:41 | Event Note ---
Event Note Event Note: Was called by nursing regarding post operative xrays. Knee xray written for however was done by radiology on 05/15/2018. I discussed this with Dr. Paige who was okay with xray being done a day early, no further xrays are required.
[2018-05-15 13:34] VITALS: BP 130/72
--- NOTE | 2018-05-15 13:41 | RADIOLOGY REPORT ---
EXAMINATION: XR KNEE, RIGHT CLINICAL INFORMATION: Status post right total knee arthroplasty. COMPARISON: Right knee MRI dated 04/25/2018. TECHNIQUE: Two views of the right knee. FINDINGS: The patient is status post total right knee arthroplasty with no evidence of hardware failure or [place] bone fracture. No significant knee joint effusion is seen. Alignment is anatomical. Midline cutaneous sutures and subcutaneous emphysematous changes are seen consistent with recent postoperative state. IMPRESSION: No evidence of hardware failure or [place] bone fracture status post total right knee arthroplasty.
[2018-05-15 20:58] VITALS: BP 140/69
[2018-05-16 06:42] VITALS: BP 138/82
--- NOTE | 2018-05-16 09:31 | PN- Orthopedic ---
Subjective Subjective: Patient sitting in chair complains of pain 07/04. Tolerating diet. Voiding. Ambulating with physical therapy using a rolling walker. Denies paresthesias. Denies chest pain, shortness of breath, headache. Objective Vital Signs and I&Os Vital Signs Date Time Temp Pulse Resp B/P B/P Pulse O2 O2 Flow FiO2 Mean Ox Delivery Rate 05/16 0642 98.1 96 20 138/82 94 Room Air 05/16 0323 96 94 05/16 0030 114 92 05/16 0000 CPAP 05/15 2209 72 92 05/15 2120 95 140/69 05/15 2058 98.4 95 20 140/69 98 Room Air 05/15 1731 Room Air Room Air 05/15 1334 98.4 93 20 130/72 92 Room Air Intake & Output 05/16 1600 05/16 0800 05/16 0000 05/15 1600 05/15 0800 05/15 0000 Intake Total 700 900 500 Output Total 400 850 900 Balance -400 -850 700 0 500 Intake, IV 600 300 Intake, Oral 700 300 200 Output, Urine 400 850 900 Physical Exam: Generalno acute distress Respirationsclear Cardiacregular rate and rhythm Abdomensoft, nontender Extremitiesright knee dressing changed, raudel in place, no signs of infection , no drainage. Clean dry dressing applied. No calf tenderness. Distal sensory and motor function intact. Current Medications: Current Medications Sig/Indu Start time Last Medication Dose Route Stop Time Status Admin Albuterol Sulfate 2 PUF Q4-6 PRN PRN 05/14 1200 AC INH Apixaban 2.5 MG BID 05/15 900 AC 05/16 PO 0859 Celecoxib 400 MG DAILY 05/15 09 AC 05/16 PO 0900 Dextrose/Sodium 1,000 ML Q13H 05/14 1345 DC 05/14 Chloride IV 1600 Diphenhydramine HCl 25 MG SEE ADMIN CRITERIA 05/14 1815 AC IV Docusate Sodium 100 MG DAILY NEEDED PRN 05/14 1200 AC PO Duloxetine HCl 60 MG DAILY 05/15 09 AC 05/16 PO 0859 Gemfibrozil 600 MG BID 05/14 2100 AC 05/16 PO 0900 Hydrocodone Bitart/ 1 TAB Q4 HRS NEEDED PRN 05/14 1200 AC Acetaminophen PO Hydrocodone Bitart/ 2 TAB Q4-6 PRN PRN 05/14 1200 AC 05/16 Acetaminophen PO 0859 Insulin Aspart 0 AT BEDTIME 05/14 2100 AC SC Insulin Aspart 0 TIDAC 05/14 1700 AC 05/15 SC 0804 Ketorolac 30 MG SEE ADMIN CRITERIA.. 05/14 1830 DC Tromethamine IV 05/15 182 Levothyroxine Sodium 0.025 MG DAILY AC 05/15 0700 AC 05/16 PO 0556 Metoclopramide HCl 10 MG Q6P PRN 05/14 181 AC IV Metoprolol Tartrate 50 MG BID 05/14 2100 AC 05/16 PO 0900 Morphine Sulfate 2 MG Q3P PRN 05/15 0800 AC 05/16 IV 0609 Naloxone HCl 0.4 MG SEE ADMIN CRITERIA 05/14 181 AC IV Omeprazole 40 MG DAILY AC 05/15 07 AC 05/16 PO 0556 Ondansetron HCl 4 MG Q6P PRN 05/14 1200 AC 05/16 IV 0609 Polyethylene Glycol 17 GM DAILY NEEDED PRN 05/14 1200 AC PO Senna/Docusate Sodium 2 TAB AT BEDTIME NEED.. 05/14 1200 AC PO Zolpidem Tartrate 10 MG QPM 05/14 2100 AC 05/15 PO 2120 Results Last 48 Hours of Labs: Laboratory Tests 05/15 0700 Chemistry Sodium (137 - 145 mmol/L) 139 Potassium (3.5 - 5.1 mmol/L) 4.3 Chloride (98 - 107 mmol/L) 106 Carbon Dioxide (22 - 30 mmol/L) 21 L Anion Gap (5 - 16) 12 BUN (7 - 17 mg/dL) 20 H Creatinine (0.5 - 1.0 mg/dL) 0.8 Estimated GFR (>60 ml/min) > 60 BUN/Creatinine Ratio (7 - 25 %) 25.0 Hematology CBC w Diff MAN DIFF ORDERED WBC (4.8 - 10.8 /CUMM) 21.5 H RBC (4.20 - 5.40 /CUMM) 3.29 L Hgb (12.0 - 16.0 G/DL) 9.9 L Hct (37 - 47 %) 29.2 L MCV (81.0 - 99.0 FL) 88.7 MCH (27.0 - 31.0 PG) 30.0 MCHC (33.0 - 37.0 G/DL) 33.9 RDW (11.5 - 14.5 %) 15.2 H Plt Count (130 - 400 /CUMM) 354 MPV (7.4 - 10.4 FL) 8.7 Gran % (42.2 - 75.2 %) 87.0 H Lymphocytes % (20.5 - 51.1 %) 3.3 L Monocytes % (1.7 - 9.3 %) 9.5 H Eosinophils % (0 - 5 %) 0.1 Basophils % (0.0 - 2.0 %) 0.1 Absolute Granulocytes (1.4 - 6.5 /CUMM) 18.7 H Segmented Neutrophils (42.2 - 75.2 %) 76 H Band Neutrophils (0.0 - 5.0 %) 11 H Absolute Lymphocytes (1.2 - 3.4 /CUMM) 0.7 L Lymphocytes (20.5 - 51.1 %) 2 L Monocytes (1.7 - 9.3 %) 10 H Absolute Monocytes (0.10 - 0.60 /CUMM) 2.0 H Absolute Eosinophils (0.0 - 0.7 /CUMM) 0 Absolute Basophils (0.0 - 0.2 /CUMM) 0 Metamyelocytes (0.0 - 1.0 %) 1 Platelet Estimate (ADEQUATE) VERIFIED BY SMEAR Anisocytosis 1+ Assessment/Plan Assessment/Plan 62-year-old female status post right total knee arthroplasty postop day 2. Stable. Follow-up a.m. labs Continue current pain and bowel regimen DVT prophylaxisEliquis and ambulation Regular diet DC planningpatient planning to go to [facility] today vs tomorrow Physical therapyweightbearing as tolerated using rolling walker Core Measures Venous Thromboembolism VTE Risk Factors Surgery No Mechanical VTE Prophylaxis d/t N/A MechProphylax Ordered No VTE Pharm Prophylaxis d/t NA PharmProphylax ordered
[2018-05-16 10:04] LABS: ABSOLUTE BASOPHIL COUNT 0 /CUMM (0.0-0.2); ABSOLUTE EOSINOPHIL COUNT 0.2 /CUMM (0.0-0.7); ABSOLUTE GRANULOCYTE CT 12.8 /CUMM (1.4-6.5); ABSOLUTE LYMPH COUNT 0.7 /CUMM (1.2-3.4); ABSOLUTE MONOCYTE COUNT 1.1 /CUMM (0.10-0.60); BASOPHIL % 0.2 % (0.0-2.0); EOSINOPHIL % 1.6 % (0-5); GRANULOCYTE % 85.9 % (42.2-75.2); HEMATOCRIT 32.6 % (37-47); MEAN CORPUSCULAR HGB 29.7 PG (27.0-31.0); MEAN CORPUSCULAR HGB CONC 33.8 G/DL (33.0-37.0); MEAN PLATELET VOLUME 8.1 FL (7.4-10.4); PLATELET COUNT 398 /CUMM (130-400); RED BLOOD CELL CT 3.71 /CUMM (4.20-5.40); WHITE BLOOD CELL COUNT 14.9 /CUMM (4.8-10.8)
--- NOTE | 2018-05-16 14:12 | PN- Medicine Consult ---
Elinor LR,Clara 05/16/18 1405: Assessment/PlanMedical Consult Assessment/Plan Assessment: Patient is a 62 YO F with PMH significant for left knee replacement 2014, Osteoarthritis, anxiety, HTN, DM, hypothyroidism, sleep apnea presented for right knee replacement surgery. She remains comfortable after surgery during my interview. Medical team consulted for managing comorbid conditions. VS are stable. Physical exam - Obese BMI - 45, normal S1, S2, no murmurs, lungs clear to ausculation, no edema, dressing present on right leg with norris wraps. Problem list 1. s/p Right TKR 2. Hypothyoidism 3. Diabetes 4. Tachycardia 5. Sleep apnea on CPAP 6. Dyspnea on exertion on inhalers follows 7. Low back pain on muscle relaxants Plan Post op care per surgery Incentive spirometry continue CPAP at night Continue home medications including levothyroxine, omeprazole, gemfibrozil Accuchecks, Insulin sliding scale while in hospital Avoid oral hypoglycemics in hospital TRC/Nebs Pain management per surgery DVT prophylaxis all the time Plan: as above Problem List: 1. Dyspnea 2. Diabetes 3. Hypothyroidism Subjective Subjective: seen at bedside Patient remains stable overnight. Pain was reasonably controlled. Prefers to go to rehab by tomorrow. able to work with physical therapy. Review of Systems Constitutional: Reports: see HPI. EENTM: Reports: see HPI. Cardiovascular: Reports: see HPI. Respiratory: Reports: see HPI. Gastrointestinal: Reports: see HPI. Objective Last 24 Hrs of Vital Signs/I&O Vital Signs Date Time Temp Pulse Resp B/P B/P Pulse O2 O2 Flow FiO2 Mean Ox Delivery Rate 05/16 0642 98.1 96 20 138/82 94 Room Air 05/16 0323 96 94 05/16 0030 114 92 05/16 0000 CPAP 05/15 2209 72 92 05/15 2120 95 140/69 05/15 2058 98.4 95 20 140/69 98 Room Air 05/15 1731 Room Air Room Air Intake & Output 05/16 1600 05/16 0800 05/16 0000 Intake Total 1900 Output Total 400 850 Balance 1900 -400 -850 Intake, Oral 1900 Number 0 Bowel Movements Output, Urine 400 850 Physical Exam General Appearance: well developed/nourished, alert, awake, obese Head: atraumatic, normal appearance Ears, Nose, Throat: normal pharynx, normal ENT inspection Neck: normal inspection, supple Cardiovascular: regular rate/rhythm, normal peripheral pulses Respiratory: normal breath sounds, chest non-tender, no respiratory distress Peripheral Pulses: 2+ radial (R), 2+ radial (L) Abdomen: normal bowel sounds, soft, non-tender Back: normal inspection Extremities: normal inspection, normal capillary refill, limited range of motion given recent surgery. Skin: intact, normal color Current Medications: Current Medications Sig/Indu Start time Last Medication Dose Route Stop Time Status Admin Albuterol Sulfate 2 PUF Q4-6 PRN PRN 05/14 1200 AC INH Apixaban 2.5 MG BID 05/15 09 AC 05/16 PO 0859 Celecoxib 400 MG DAILY 05/15 09 AC 05/16 PO 0900 Diphenhydramine HCl 25 MG SEE ADMIN CRITERIA 05/14 1815 AC IV Docusate Sodium 100 MG DAILY NEEDED PRN 05/14 1200 AC PO Duloxetine HCl 60 MG DAILY 05/15 09 AC 05/16 PO 0859 Gemfibrozil 600 MG BID 05/14 2100 AC 05/16 PO 0900 Hydrocodone Bitart/ 1 TAB Q4 HRS NEEDED PRN 05/14 1200 AC Acetaminophen PO Hydrocodone Bitart/ 2 TAB Q4-6 PRN PRN 05/14 1200 AC 05/16 Acetaminophen PO 0859 Insulin Aspart 0 AT BEDTIME 05/14 2100 AC SC Insulin Aspart 0 TIDAC 05/14 1700 AC 05/15 SC 0804 Ketorolac 30 MG SEE ADMIN CRITERIA.. 05/14 1830 DC Tromethamine IV 05/15 1829 Levothyroxine Sodium 0.025 MG DAILY AC 05/15 07 AC 05/16 PO 0556 Metoclopramide HCl 10 MG Q6P PRN 05/14 181 AC IV Metoprolol Tartrate 50 MG BID 05/14 2100 AC 05/16 PO 0900 Morphine Sulfate 2 MG Q3P PRN 05/15 08 AC 05/16 IV 0609 Naloxone HCl 0.4 MG SEE ADMIN CRITERIA 05/14 181 AC IV Omeprazole 40 MG DAILY AC 05/15 07 AC 05/16 PO 0556 Ondansetron HCl 4 MG Q6P PRN 05/14 1200 AC 05/16 IV 0609 Polyethylene Glycol 17 GM DAILY NEEDED PRN 05/14 1200 AC PO Senna/Docusate Sodium 2 TAB AT BEDTIME NEED.. 05/14 1200 AC PO Zolpidem Tartrate 10 MG QPM 05/14 2100 AC 05/15 PO 2120 Results Last 24 Hrs Lab/Mg Results: Laboratory Tests 05/16/18 0940: CBC w Diff NO MAN DIFF REQ, RBC 3.71 L, MCV 88.0, MCH 29.7, MCHC 33.8, RDW 15.0 H, MPV 8.1, Gran % 85.9 H, Lymphocytes % 4.7 L, Monocytes % 7.6, Eosinophils % 1.6, Basophils % 0.2, Absolute Granulocytes 12.8 H, Absolute Lymphocytes 0.7 L, Absolute Monocytes 1.1 H, Absolute Eosinophils 0.2, Absolute Basophils 0 Andrew Ashton MD 05/16/18 2012: Attending MD Review Statement Attending Sign Off Attending Cosign Statement: I have: examined this patient, reviewed avalbl EMR data, discussd w/resident/PA/ CAUL PULLER, discussed mgmt plan w/chey, discussed mgmt plan w/pt, agreed w/resident/PA/CAUL PULLER , amended to note. Other Findings: The patient was seen and discussed with house staff. Agree with plan of care. Medically stable. Assuming remains stable to transfer to [facility] tomorrow.
[2018-05-16 15:26] VITALS: BP 120/70
[2018-05-16 22:16] VITALS: BP 140/82
[2018-05-17 06:16] VITALS: BP 144/86
--- NOTE | 2018-05-17 08:44 | PN- Orthopedic ---
See Addendum Subjective Subjective: Patient feels well, pain is controlled, no acute events overnight, no fever no flulike illness. She was able to do a few stairs yesterday. Feels more stiff today Objective Vital Signs and I&Os Vital Signs Date Time Temp Pulse Resp B/P B/P Pulse O2 O2 Flow FiO2 Mean Ox Delivery Rate 05/17 0616 98.7 94 20 144/86 94 Room Air 05/17 0011 99 93 05/16 2216 93 93 05/16 2216 98.9 100 18 140/82 94 Room Air 05/16 2107 100 140/82 05/16 1526 98.1 88 20 120/70 94 Room Air 05/16 1444 Room Air Room Air Intake & Output 05/17 1600 05/17 0800 05/17 0000 05/16 1600 05/16 0800 05/16 0000 Intake Total 1900 Output Total 400 450 400 850 Balance -400 -450 1900 -400 -850 Intake, Oral 1900 Number 0 Bowel Movements Output, Urine 400 450 400 850 Patient 239 lb Weight Weight Bed scale Measurement Method Physical Exam: Well-developed well-nourished no apparent distress. HEENT: Atraumatic, extraocular motion intact Neck: Supple, no lymphadenopathy Respiratory: No respiratory distress Extremities: No edema LEFT lower extremity dressing in place, Incision line is clean dry and intact with , no drainage no signs of infection. Mild joint effusion Range of motion is 0-30. Dry sterile dressing applied ALPS in place Neurovascularly intact distally Bilateral calves are supple, nontender. Neuro: Alert and oriented x3 Psych: Mood affect normal, normal memory normal judgment. Skin: Warm and dry, no rash on exposed skin Assessment/Plan Assessment/Plan Postop day #3 status post right total knee arthroplasty Pain medication as needed. Out of bed Physical therapy, weightbearing as tolerated, work on knee range of motion Eliquis for DVT prophylaxis ALPS for DVT prophylaxis Regular home meds [facility] and [facility] Bowel regimen Core Measures Venous Thromboembolism VTE Risk Factors Surgery No Mechanical VTE Prophylaxis d/t N/A MechProphylax Ordered No VTE Pharm Prophylaxis d/t NA PharmProphylax ordered
[2018-05-17] MEDS ORDERED: MIRALAX119 GM PO (08:48)
[2018-05-17] MEDS ORDERED: SENNA PLUS TAB1 EACH PO (08:48)
[2018-05-17] MEDS ORDERED: ELIQUIS2.5 M1 PO (08:48)
[2018-05-17 10:40] VITALS: BP 156/80
[2018-05-17 13:48] VITALS: BP 120/70
[2018-05-17 14:51] VITALS: BP 120/70
== END 2018-05-17 16:42 | DRG 470 ==
LOC: SDA 02:07 → ENRESERV 10:19 → ENTRNSPT 10:44 → EDTRNSPT 10:59 → EDTRNSPTSTS 10:59 → 2NB 11:15 → CMPTRNSPT 11:44 → ENPENDDIS 05-17 09:03 → ENTRNSPT 05-17 16:25 → EDTRNSPTSTS 05-17 16:33 → 2NB 05-17 16:42 → CMPTRNSPT 05-17 16:54
PROVIDERS: Physician Assistant Surgical
PROC: 0SRC0J9 Replacement of Right Knee Joint with Synthetic Substitute, Cemented, Open Approach (ICD-10-PCS; principal; 2018-05-14)
PROC: 3E0T3BZ Introduction of Anesthetic Agent into Peripheral Nerves and Plexi, Percutaneous Approach (ICD-10-PCS; principal; 2018-05-14)
DX: M17.11 Unilateral primary osteoarthritis, right knee (principal); Z96.652 Presence of left artificial knee joint; F41.9 Anxiety disorder, unspecified; I10 Essential (primary) hypertension; E03.9 Hypothyroidism, unspecified; G47.33 Obstructive sleep apnea (adult) (pediatric); R00.0 Tachycardia, unspecified; Z85.3 Personal history of malignant neoplasm of breast; Z88.1 Allergy status to other antibiotic agents; Z88.0 Allergy status to penicillin; Z79.84 Long term (current) use of oral hypoglycemic drugs; Z79.51 Long term (current) use of inhaled steroids; Z98.51 Tubal ligation status; K21.9 Gastro-esophageal reflux disease without esophagitis; M79.7 Fibromyalgia; M54.5 Low back pain; E11.9 Type 2 diabetes mellitus without complications
CPT/HCPCS: 2NSBP; 36415; 36592; 73560-RT; 82436; 87086; 97110-GO; 97112-GO; 97116-GO; 97161-GP; 97530-GO; C1713; C9290; J1100; J2405; J2765; J3370; J3490; J7040; J7042